=== PATIENT | female | born 1955 | race Caucasian/White ===

== ENCOUNTER 2017-04-11 17:32 | Emergency (ER) | payer OTHER ==
[~2017-04-11] VITALS: Ht 170.2 cm; Wt 70.0 kg
[~2017-04-11 17:32] MED LIST: LORT5TAB PO; OMEP20CA5 PO; [UNRECOGNIZED DRUG - CODE]
[2017-04-11 17:37] VITALS: BP 112/66; PULSE 103; RESP 22; TEMP 101.3; O2SAT 97
[2017-04-11 17:51] VITALS: BP 103/69; PULSE 105; RESP 18; TEMP 101.3; O2SAT 99
[2017-04-11] MEDS ORDERED: KETOROLAC TROMETHAMINE 30 MG/ML (IVP) VIAL IV PUSH ONE (18:00)
[2017-04-11] MEDS ORDERED: SODIUM CHLOR 0.9% 1000 ML INJ 1,000 ML IV ONE ×2 (18:00)
--- NOTE | 2017-04-11 18:03 | PD ---
HPI Chief Complaint: Fever Time Seen by Provider: 17:47 Travel History International Travel<30 days: No Contact w/Intl Traveler<30days: No Traveled to known affect area: No History of Present Illness HPI 62-year-old female presents to the emergency department for evaluation of fever that started last night. Patient has a port to the right upper chest. She is herself calcium infusions 3 times weekly for hypoparathyroidism. The patient is concerned that her port may be infected. She has had it for 2 years without issue. She denies any pain or erythema. Patient states that she has fever and bodyaches, no other complaints. Patient denies any cough or congestion. She reports mild headache. No abdominal pain. No nausea, vomiting, diarrhea. No urinary symptoms. Patient took Tylenol at 2:30 this afternoon. She states she had a similar episode approximately 3 weeks ago and ran a fever while she was doing her infusion. However, it was gone the next day and she has been fine until last night. Patient states that her symptoms started while getting a calcium infusion. PFSH Past Medical History Hx Anticoagulant Therapy: Yes (HEPARIN IN PORT ) Anemia: Yes GERD: Yes Implanted Vascular Access Dvce: Yes Medical other: Yes (hyperparathyroidism) Past Surgical History Abdominal Surgery: Yes (DUDENAAL SWITCH-2005) Appendectomy: Yes Cholecystectomy: Yes Hysterectomy: Yes Tonsillectomy: Yes Social History Alcohol Use: Yes (OCCASIONAL) Tobacco Use: No Substance Use: No Allergies-Medications (Allergen,Severity, Reaction): Coded Allergies: doxycycline (Unverified Adverse Reaction, Severe, Vertigo, 03/09/17) meperidine (Unverified Adverse Reaction, Severe, Psychosis, 03/09/17) codeine (Unverified Adverse Reaction, Mild, Irritability/Anxiety, 03/09/17) Reported Meds & Prescriptions Reported Meds & Active Scripts Active Reported [Calcium Gluconate] 2 Gm IV-CENTRAL MOWEFR Calcium Gluconate 2gm/500ml NSS infusion therapy three times a week on Wednesday,Wednesday and Wednesday [Primal Defense Ultra] 2 Tab PO BID Vitamin A 25,000 Unit Capsule 50,000 Units PO DAILY Vitamin D3 (Cholecalciferol) 50,000 Unit Cap 100,000 Units PO BID Vitamin K (Phytonadione) 100 Mcg Tab 1,000 Mcg PO BID Vitamin K2 (Menaquinone-7) 40 Mcg Tab 150 Mcg PO BID Cymbalta DR (Duloxetine HCl) 60 Mg Capdr 60 Mg PO HS Flagyl (Metronidazole) 250 Mg Tab 250 Mg PO BID Zantac (Ranitidine HCl) 150 Mg Tab 150 Mg PO HS Omeprazole 40 Mg Cap 40 Mg PO BID Tylenol (Acetaminophen) 325 Mg Tab 650 Mg PO Q6H PRN Colace (Docusate Sodium) 100 Mg Capsule 100 Mg PO DAILY PRN Review of Systems Except as stated in HPI: all other systems reviewed are Neg Physical Exam Narrative GENERAL: Well-nourished, well-developed female patient, temp of 101.3. SKIN: Focused skin assessment warm/dry. HEAD: Normocephalic. Atraumatic. ENT: Mucosa pink and moist. No erythema or exudates. No uvular edema. No uvular , palatal, or tonsillar deviation. Airway patent. Nasal turbinates appear normal without nasal blood, purulent drainage or septal hematoma. Bilateral tympanic membranes are clear without erythema or perforation. EYES: No scleral icterus. No injection or drainage. NECK: Supple, trachea midline. No JVD or lymphadenopathy. CARDIOVASCULAR: Regular rate and rhythm without murmurs, gallops, or rubs. RESPIRATORY: Breath sounds equal bilaterally. No accessory muscle use. Lungs sounds are clear to auscultation. GASTROINTESTINAL: Abdomen soft, non-tender, nondistended. MUSCULOSKELETAL: No cyanosis, or edema. BACK: Nontender without obvious deformity. No CVA tenderness. Data Data Last Documented VS Vital Signs Date Time Temp Pulse Resp B/P (MAP) Pulse Ox O2 Delivery O2 Flow Rate FiO2 04/11/17 19:28 99.0 74 16 102/66 (78) 96 Room Air Orders Orders Complete Blood Count With Diff (04/11/17 17:54) Comprehensive Metabolic Panel (04/11/17 17:54) Lactic Acid Sepsis Protocol (04/11/17 17:54) Urinalysis - C+S If Indicated (04/11/17 17:54) Influenzae A/B Antigen (04/11/17 17:54) Blood Culture (04/11/17 17:54) Chest, Single Ap (04/11/17 17:54) Blood Glucose (04/11/17 17:54) Ecg Monitoring (04/11/17 17:54) Iv Access Insert/Monitor (04/11/17 17:54) Oximetry (04/11/17 17:54) Oxygen Administration (04/11/17 17:54) Sodium Chlor 0.9% 1000 Ml Inj (Ns 1000 M (04/11/17 18:00) Sodium Chlor 0.9% 1000 Ml Inj (Ns 1000 M (04/11/17 18:00) Ketorolac Inj (Toradol Inj) (04/11/17 18:00) Labs Laboratory Tests Test 04/11/17 18:05 White Blood Count 7.2 TH/MM3 Red Blood Count 4.70 MIL/MM3 Hemoglobin 12.3 GM/DL Hematocrit 37.4 % Mean Corpuscular Volume 79.6 FL Mean Corpuscular Hemoglobin 26.2 PG Mean Corpuscular Hemoglobin Concent 32.9 % Red Cell Distribution Width 14.5 % Platelet Count 241 TH/MM3 Mean Platelet Volume 7.5 FL Neutrophils (%) (Auto) 77.9 % Lymphocytes (%) (Auto) 11.1 % Monocytes (%) (Auto) 10.0 % Eosinophils (%) (Auto) 0.5 % Basophils (%) (Auto) 0.5 % Neutrophils # (Auto) 5.6 TH/MM3 Lymphocytes # (Auto) 0.8 TH/MM3 Monocytes # (Auto) 0.7 TH/MM3 Eosinophils # (Auto) 0.0 TH/MM3 Basophils # (Auto) 0.0 TH/MM3 CBC Comment DIFF FINAL Differential Comment Urine Color YELLOW Urine Turbidity CLEAR Urine pH 6.0 Urine Specific [place] 1.016 Urine Protein TRACE mg/dL Urine Glucose (UA) NEG mg/dL Urine Ketones NEG mg/dL Urine Occult Blood NEG Urine Nitrite NEG Urine Bilirubin NEG Urine Urobilinogen LESS THAN 2.0 MG/DL Urine Leukocyte Esterase NEG Urine RBC LESS THAN 1 /hpf Urine WBC LESS THAN 1 /hpf Urine Squamous Epithelial Cells <1 /hpf Urine Mucus FEW /lpf Microscopic Urinalysis Comment CATH-CULT NOT IND Blood Urea Nitrogen 9 MG/DL Creatinine 0.68 MG/DL Random Glucose 103 MG/DL Total Protein 6.8 GM/DL Albumin 3.5 GM/DL Calcium Level 8.7 MG/DL Alkaline Phosphatase 109 U/L Aspartate Amino Transf (AST/SGOT) 25 U/L Alanine Aminotransferase (ALT/SGPT) 39 U/L Total Bilirubin 0.4 MG/DL Sodium Level 136 MEQ/L Potassium Level 3.9 MEQ/L Chloride Level 104 MEQ/L Carbon Dioxide Level 24.3 MEQ/L Anion Gap 8 MEQ/L Estimat Glomerular Filtration Rate 88 ML/MIN Lactic Acid Level 0.8 mmol/L MDM Medical Decision Making Medical Screen Exam Complete: Yes Emergency Medical Condition: Yes Medical Record Reviewed: Yes Interpretation(s) Last Impressions Chest X-Ray 04/11/17 8345 Signed Impressions: Service Date/Time: Tuesday, April 11, 2017 18:45 - CONCLUSION: No evidence of pneumonia or other acute cardiopulmonary disease. Charles Garsia MD Differential Diagnosis Influenza versus viral syndrome versus pneumonia versus UTI versus port infection Narrative Course 62-year-old female presents to the emergency department for evaluation of fever , body aches that started last night. She does have a port for calcium infusions and is concerned of infection. CBC, CMP, lactic acid, blood cultures 2, and influenza, ua are ordered and pending. Chest x-ray is ordered and pending. Patient is given normal saline 1 L IV bolus 2, Toradol 30 mg IV for fever. CBC shows normal WBC of 7.2, neutrophilia of 77.9. CMP is unremarkable. Lactic acid is 0.8. UA is negative for acute infection. Chest x-ray shows no evidence of pneumonia or other acute cardiopulmonary disease. Influenza is negative. Lab work and imaging results are reassuring. I discussed results with the patient. Blood cultures are pending. I instructed the patient states the symptoms are most likely due to viral illness. She is to take plenty of fluids , Tylenol every 4 hours as needed. She is instructed to follow with her primary care physician for reevaluation. She is return here for any acute worsening of symptoms. Patient verbalizes agreement and understanding. The patient was discharged in stable condition with instructions, including return instructions and follow up instructions. Diagnosis Primary Impression: Fever Qualified Codes: R50.9 - Fever, unspecified Additional Impression: Viral illness Referrals: Primary Care Physician 2 days Patient Instructions: Fever in Adults (ED), General Instructions, Viral Syndrome (ED) Additional Instructions: Drink plenty of fluids. Tylenol every 4 hours as needed for fever. Follow-up with your primary care physician. Return to the emergency department for any acute worsening of symptoms. Med/Other Pt SpecificInfo: No Change to Meds Disposition: DISCHARGE HOME Condition: Stable Alison Sierra Apr 11, 2017 18:03
[2017-04-11] MEDS ORDERED: ZANT150T2 PO (18:27)
[2017-04-11] MEDS ORDERED: TYLE325T PO (18:27)
[2017-04-11] MEDS ORDERED: CHOL1CAP34 PO (18:27)
[2017-04-11] MEDS ORDERED: MENA1TAB PO (18:27)
[2017-04-11] MEDS ORDERED: VITA100T50 PO (18:27)
[2017-04-11] MEDS ORDERED: COLA100C PO (18:27)
[2017-04-11] MEDS ORDERED: [UNRECOGNIZED DRUG - OTHER] PO (18:27)
[2017-04-11] MEDS ORDERED: [UNRECOGNIZED DRUG - CODE] PO (18:27)
[2017-04-11] MEDS ORDERED: OMEP40CA2 PO (18:27)
[2017-04-11] MEDS ORDERED: METR250 PO (18:27)
[2017-04-11] MEDS ORDERED: CALC-78 IV-CENTRAL (18:27)
[2017-04-11] MEDS ORDERED: CYMB60CA PO (18:27)
[2017-04-11 18:38] LABS: AUTOMATED NEUTROPHIL # 5.6 TH/MM3 (1.8-7.7); BASOPHIL % 0.5 % (0.0-2.0); EOSINOPHIL % 0.5 % (0.0-4.0); HEMATOCRIT 37.4 % (35.0-46.0); HEMO FLAGS DIFF FINAL; LYMPH % 11.1 % (9.0-44.0); LYMPHOCYTE # 0.8 TH/MM3 (1.0-4.8); MEAN CELL VOLUME 79.6 FL (80.0-100.0); MEAN CORPUSCULAR HEMOGLOBIN 26.2 PG (27.0-34.0); MEAN CORPUSCULAR HGB CONC 32.9 % (32.0-36.0); NEUT % 77.9 % (16.0-70.0); PLATELET COUNT 241 TH/MM3 (150-450); RED CELL DISTRIBUTION WIDTH 14.5 % (11.6-17.2); WHITE BLOOD COUNT 7.2 TH/MM3 (4.0-11.0)
[2017-04-11 18:51] LABS: ANION GAP 8 MEQ/L (5-15); AST (GOT) 25 U/L (15-37); BICARBONATE 24.3 MEQ/L (21.0-32.0); BLOOD UREA NITROGEN 9 MG/DL (7-18); CHLORIDE 104 MEQ/L (98-107); GLOMERULAR FILTRATION RATE 88 ML/MIN (>89); POTASSIUM 3.9 MEQ/L (3.5-5.1); SODIUM (NA) 136 MEQ/L (136-145)
[2017-04-11 18:52] LABS: ALT (GPT) 39 U/L (10-53)
[2017-04-11 18:53] LABS: BLOOD, URINE NEG (NEG); GLUCOSE,URINE NEG (NEG); KETONE, URINE NEG (NEG); MUCUS URINE FEW /lpf (OCC); NITRITE,URINE NEG (NEG); SQUAMOUS EPITHELIAL CELL URINE <1 /hpf (0-5); URINE COLOR YELLOW (YELLW/STRAW)
[2017-04-11 18:54] LABS: ALKALINE PHOSPHATASE 109 U/L (45-117); COMMENT (UR) CATH-CULT NOT IND; CULTURE IF INDICATED CATH CULTURE NOT IND; TOTAL BILIRUBIN ADULT 0.4 MG/DL (0.2-1.0)
--- NOTE | 2017-04-11 19:07 | RADRPT ---
EXAM DATE/TIME: 04/11/2017 18:45 [facility] COMPARISON: No previous studies available for comparison. INDICATIONS : Fever MEDICAL HISTORY : None. SURGICAL HISTORY : Infusaport ENCOUNTER: Initial ACUITY: 1 day PAIN SCORE: 0/10 LOCATION: chest FINDINGS: A single view of the chest demonstrates the lungs to be symmetrically aerated without evidence of mas s, infiltrate or effusion. The cardiomediastinal contours are unremarkable. Osseous structures are intact. There is a right internal jugular [id number] catheter with tip at the atriocaval junction. CONCLUSION: No evidence of pneumonia or other acute cardiopulmonary disease. Charles Garsia MD on April 11, 2017 at 19:05 Board Certified Radiologist. This report was verified electronically.
[2017-04-11 19:28] VITALS: BP 102/66; PULSE 74; RESP 16; TEMP 99; O2SAT 96
== END 2017-04-11 20:27 | disposition home or self-care (01) ==
LOC: NEPC 17:32
DX: R50.9 Fever, unspecified (principal); B34.9 Viral infection, unspecified
CPT/HCPCS: 71010; 80053; 81001; 83605; 85025; 87040; 87077; 87205; 87804; 96361; 96374; 99284; J1642; J1885; J7030

== ENCOUNTER 2017-04-18 14:01 | Emergency (ER) | payer OTHER ==
[~2017-04-18] VITALS: Ht 172.7 cm; Wt 68.0 kg
[~2017-04-18 14:01] MED LIST changes: +CALC-78 IV-CENTRAL; +CHOL1CAP34 PO; +COLA100C PO; +CYMB60CA PO; -LORT5TAB PO; +MENA1TAB PO; +METR250 PO; -OMEP20CA5 PO; +OMEP40CA2 PO; +TYLE325T PO; +VITA100T50 PO; +ZANT150T2 PO; -[UNRECOGNIZED DRUG - CODE]; +[UNRECOGNIZED DRUG - CODE] PO; +[UNRECOGNIZED DRUG - OTHER] PO
[2017-04-18 14:03] VITALS: BP 119/70; PULSE 80; RESP 20; TEMP 98.4; O2SAT 98
--- NOTE | 2017-04-18 15:12 | PD ---
HPI Chief Complaint: Abnormal Results Time Seen by Provider: 14:57 Travel History International Travel<30 days: No Contact w/Intl Traveler<30days: No Traveled to known affect area: No History of Present Illness HPI Patient is a 62-year-old female presenting to the emergency department for reevaluation after a positive blood culture resulted. She was seen and evaluated 7 days ago in the emergency department when she presented at that time she had been diagnosed with a viral illness. Patient states her fevers lasted for approximately 56 hours, she's been taking acetaminophen around-the- clock. She reports that her fevers continue to breakthrough at night. She reports that this is been ongoing for 1 month, she reports increased fatigue, body aches and fevers that will last a few days and then resolved. Patient was in [place] in late December, she had a tick on her but did not know if it is bitten her or not. Patient is normally very active but for this last month she has been wanting to sleep and lay in bed. She denies any nausea, vomiting, abdominal pain, chest pain or shortness of breath. She denies any cough, diarrhea, headache. 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 Patient receives calcium infusions 3 times a week, she has a right chest port which she accesses herself. 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) Musculoskeletal: Yes (hypoparathyroidism) Past Surgical History Abdominal Surgery: Yes (duodenal SWITCH-2005) Appendectomy: Yes Cholecystectomy: Yes Hysterectomy: Yes Tonsillectomy: Yes Social History Alcohol Use: Yes (OCCASIONAL) Tobacco Use: No Substance Use: No Allergies-Medications (Allergen,Severity, Reaction): Coded Allergies: doxycycline (Unverified Adverse Reaction, Severe, Vertigo, 03/09/17) meperidine (Unverified Adverse Reaction, Severe, Psychosis, 03/09/17) codeine (Unverified Adverse Reaction, Mild, Irritability/Anxiety, 03/09/17) Reported Meds & Prescriptions Reported Meds & Active Scripts Active Reported [Calcium Gluconate] 2 Gm IV-CENTRAL MOWEFR Calcium Gluconate 2gm/500ml NSS infusion therapy three times a week on Wednesday,Wednesday and Wednesday [Primal Defense Ultra] 2 Tab PO BID Vitamin A 25,000 Unit Capsule 50,000 Units PO DAILY Vitamin D3 (Cholecalciferol) 50,000 Unit Cap 100,000 Units PO BID Vitamin K (Phytonadione) 100 Mcg Tab 1,000 Mcg PO BID Vitamin K2 (Menaquinone-7) 40 Mcg Tab 150 Mcg PO BID Cymbalta DR (Duloxetine HCl) 60 Mg Capdr 60 Mg PO HS Flagyl (Metronidazole) 250 Mg Tab 250 Mg PO BID Zantac (Ranitidine HCl) 150 Mg Tab 150 Mg PO HS Omeprazole 40 Mg Cap 40 Mg PO BID Tylenol (Acetaminophen) 325 Mg Tab 650 Mg PO Q6H PRN Colace (Docusate Sodium) 100 Mg Capsule 100 Mg PO DAILY PRN Review of Systems Except as stated in HPI: all other systems reviewed are Neg General / Constitutional: Positive: Fever, Chills, Other (fatigue) Eyes: No: Blurred Vision HENT: No: Headaches Cardiovascular: No: Chest Pain or Discomfort Respiratory: No: Shortness of Breath Gastrointestinal: No: Nausea, Vomiting, Abdominal Pain Musculoskeletal: Positive: Myalgias Physical Exam Narrative GENERAL: Well-developed, well-nourished, well-appearing female. Resting comfortably in no acute distress. SKIN: Warm and dry. HEAD: Atraumatic. Normocephalic. EYES: Pupils equal and round. No scleral icterus. No injection or drainage. ENT: No nasal bleeding or discharge. Mucous membranes pink and moist. NECK: Trachea midline. No JVD. CARDIOVASCULAR: Regular rate and rhythm. RESPIRATORY: No accessory muscle use. Clear to auscultation. Breath sounds equal bilaterally. GASTROINTESTINAL: Abdomen soft, non-tender, nondistended. Hepatic and splenic margins not palpable. MUSCULOSKELETAL: Extremities without clubbing, cyanosis, or edema. No obvious deformities. NEUROLOGICAL: Awake and alert. No obvious cranial nerve deficits. Motor grossly within normal limits. Five out of 5 muscle strength in the arms and legs. Normal speech. PSYCHIATRIC: Appropriate mood and affect; insight and judgment normal. Data Data Last Documented VS Vital Signs Date Time Temp Pulse Resp B/P (MAP) Pulse Ox O2 Delivery O2 Flow Rate FiO2 04/18/17 14:03 98.4 80 20 119/70 (86) 98 Room Air Orders Orders Complete Blood Count With Diff (04/18/17 14:42) Basic Metabolic Panel (Bmp) (04/18/17 14:42) Blood Culture (04/18/17 14:42) Lyme Disease Pcr (04/18/17 14:54) B.Burgdorferi Igg&Igm Ab Lymes (04/18/17 14:54) Labs Laboratory Tests Test 04/18/17 15:10 White Blood Count 6.6 TH/MM3 Red Blood Count 4.57 MIL/MM3 Hemoglobin 11.6 GM/DL Hematocrit 36.2 % Mean Corpuscular Volume 79.4 FL Mean Corpuscular Hemoglobin 25.4 PG Mean Corpuscular Hemoglobin Concent 32.0 % Red Cell Distribution Width 14.6 % Platelet Count 290 TH/MM3 Mean Platelet Volume 7.4 FL Neutrophils (%) (Auto) 68.6 % Lymphocytes (%) (Auto) 19.4 % Monocytes (%) (Auto) 8.9 % Eosinophils (%) (Auto) 2.1 % Basophils (%) (Auto) 1.0 % Neutrophils # (Auto) 4.6 TH/MM3 Lymphocytes # (Auto) 1.3 TH/MM3 Monocytes # (Auto) 0.6 TH/MM3 Eosinophils # (Auto) 0.1 TH/MM3 Basophils # (Auto) 0.1 TH/MM3 CBC Comment DIFF FINAL Differential Comment Blood Urea Nitrogen 13 MG/DL Creatinine 0.78 MG/DL Random Glucose 87 MG/DL Calcium Level 9.2 MG/DL Sodium Level 138 MEQ/L Potassium Level 4.1 MEQ/L Chloride Level 104 MEQ/L Carbon Dioxide Level 26.4 MEQ/L Anion Gap 8 MEQ/L Estimat Glomerular Filtration Rate 75 ML/MIN MDM Medical Decision Making Medical Screen Exam Complete: Yes Emergency Medical Condition: Yes Medical Record Reviewed: Yes Interpretation(s) Laboratory Tests Test 04/18/17 15:10 White Blood Count 6.6 TH/MM3 Red Blood Count 4.57 MIL/MM3 Hemoglobin 11.6 GM/DL Hematocrit 36.2 % Mean Corpuscular Volume 79.4 FL Mean Corpuscular Hemoglobin 25.4 PG Mean Corpuscular Hemoglobin Concent 32.0 % Red Cell Distribution Width 14.6 % Platelet Count 290 TH/MM3 Mean Platelet Volume 7.4 FL Neutrophils (%) (Auto) 68.6 % Lymphocytes (%) (Auto) 19.4 % Monocytes (%) (Auto) 8.9 % Eosinophils (%) (Auto) 2.1 % Basophils (%) (Auto) 1.0 % Neutrophils # (Auto) 4.6 TH/MM3 Lymphocytes # (Auto) 1.3 TH/MM3 Monocytes # (Auto) 0.6 TH/MM3 Eosinophils # (Auto) 0.1 TH/MM3 Basophils # (Auto) 0.1 TH/MM3 CBC Comment DIFF FINAL Differential Comment Blood Urea Nitrogen 13 MG/DL Creatinine 0.78 MG/DL Random Glucose 87 MG/DL Calcium Level 9.2 MG/DL Sodium Level 138 MEQ/L Potassium Level 4.1 MEQ/L Chloride Level 104 MEQ/L Carbon Dioxide Level 26.4 MEQ/L Anion Gap 8 MEQ/L Estimat Glomerular Filtration Rate 75 ML/MIN Vital Signs Date Time Temp Pulse Resp B/P (MAP) Pulse Ox O2 Delivery O2 Flow Rate FiO2 04/18/17 14:03 98.4 80 20 119/70 (86) 98 Room Air Differential Diagnosis Viral syndrome versus Alonso-Agee versus Lyme disease versus bacteremia Narrative Course Pt returned to ED for reassessment after having a positive blood culture. One aerobic culture grew polymorphic gram positive rods. Pt reported a 1 month history of recurring fevers, general malaise, body aches. Interestingly she had been in [place] and had found a tick on her, she is unsure if she had been bitten or if there was another unfound tick. For this reason in addition to the CBC, chemistry and repeated blood cultures we will obtain labs to assess for Lyme disease. Pt is afebrile now. New labs reviewed, no acute findings identified. Blood cultures are pending as is PCR. Pt advised she will need to follow up with her PCP to have these results requested and reviewed. Pt advised to return to the ED for any new or worsening symptoms. She was advised she will be notified if repeated cultures are again positive. She verbalized understanding, pt is stable for discharge. Diagnosis Primary Impression: Positive blood culture Referrals: Primary Care Physician 1 week Patient Instructions: General Instructions Additional Instructions: Follow-up with your primary doctor in 3-7 days to review lab results Return to emergency department for any new or worsening symptoms If repeat blood cultures are positive you will be notified once again. Med/Other Pt SpecificInfo: No Change to Meds Disposition: 01 DISCHARGE HOME Condition: Stable Cinthia Jimenez Apr 18, 2017 15:12
[2017-04-18 15:55] LABS: AUTOMATED NEUTROPHIL # 4.6 TH/MM3 (1.8-7.7); BASOPHIL # 0.1 TH/MM3 (0-0.2); EOSINOPHIL # 0.1 TH/MM3 (0-0.4); EOSINOPHIL % 2.1 % (0.0-4.0); HEMATOCRIT 36.2 % (35.0-46.0); HEMO FLAGS DIFF FINAL; LYMPH % 19.4 % (9.0-44.0); LYMPHOCYTE # 1.3 TH/MM3 (1.0-4.8); MEAN CELL VOLUME 79.4 FL (80.0-100.0); MEAN CORPUSCULAR HEMOGLOBIN 25.4 PG (27.0-34.0); MONO % 8.9 % (0.0-8.0); NEUT % 68.6 % (16.0-70.0); PLATELET COUNT 290 TH/MM3 (150-450); RED BLOOD COUNT 4.57 MIL/MM3 (4.00-5.30); RED CELL DISTRIBUTION WIDTH 14.6 % (11.6-17.2); WHITE BLOOD COUNT 6.6 TH/MM3 (4.0-11.0)
[2017-04-18 16:08] LABS: BICARBONATE 26.4 MEQ/L (21.0-32.0); POTASSIUM 4.1 MEQ/L (3.5-5.1)
[2017-04-21 23:54] LABS: LYME DISEASE 18KD IGG BAND NON-REACTIVE (NON REACTIV); LYME DISEASE 23 IGG BAND NON-REACTIVE (NON REACTIV); LYME DISEASE 23KD IGM BAND NON-REACTIVE (NONREACTIVE); LYME DISEASE 28KD IGG BAND NON-REACTIVE (NON REACTIV); LYME DISEASE 30KD IGG BAND NON-REACTIVE (NON REACTIV); LYME DISEASE 39 KD IGG BAND NON-REACTIVE (NONREACTIVE); LYME DISEASE 39KD IGM BAND NON-REACTIVE (NONREACTIVE); LYME DISEASE 41KD IGG BAND REACTIVE (NONREACTIVE); LYME DISEASE 41KD IGM BAND REACTIVE (NONREACTIVE); LYME DISEASE 45KD IGG BAND NON-REACTIVE (NONREACTIVE); LYME DISEASE 58KD IGG BAND NON-REACTIVE (NONREACTIVE); LYME DISEASE 66KD IGG BAND NON-REACTIVE (NONREACTIVE); LYME DISEASE 93KD IGG BAND NON-REACTIVE (NONREACTIVE); LYME DISEASE IGM WB NEGATIVE (NONREACTIVE)
== END 2017-04-18 17:17 | disposition home or self-care (01) ==
LOC: NEPC 14:01
DX: R78.81 Bacteremia (principal)
CPT/HCPCS: 80048; 85025; 86617; 87040; 87077; 87205; 87801; 99283

== ENCOUNTER 2018-02-25 13:52 | Inpatient (IN) ==
[2018-02-25] MEDS ORDERED: Morphine Inj 4 MG/ML Vial IM ONE (16:40)
--- NOTE | 2018-02-25 17:00 | ED ---
HPI General Chief Complaint: Extremity Injury, Lower Stated Complaint: fall Time Seen by Provider: 02/25/18 16:18 Source: patient Mode of arrival: ambulatory Limitations: no limitations History of Present Illness HPI Narrative: 63-year-old female with a history of Keenan-Danlos syndrome, osteoporosis, GERD, esophageal erosion presents to the ED with left hip pain that has been persistent for 1 week. She says she had a mechanical fall last and landed directly on her left hip. Says she went to urgent care the same day and had an x-ray which did not demonstrate a fracture. Patient says she has had severe pain since the incident and decided go to her primary care physician this past Wednesday. Dr. Dyer, her PCP ordered an MRI of the hip and she had this performed yesterday. Says that she did not know the results but decided to come in today because of severe pain in her left hip. Patient says that she has been taking Tylenol and a couple of doses of Celebrex although she was directed not to do so. Says that she has a history of GERD and gastric erosion was advised not to take NSAIDs because of this medical issue. Says the pain is located in her left hip without radiation. It is moderate, worse with walking. Denies numbness or tingling. Related Data Home Medications Medication Instructions Recorded Confirmed No Known Home Medications 02/25/18 02/25/18 Allergies Allergy/AdvReac Type Severity Reaction Status Date / Time doxycycline AdvReac Severe Vertigo Verified 02/25/18 16:03 meperidine AdvReac Severe Psychosis Verified 02/25/18 16:04 codeine AdvReac Mild Irritabilit Verified 02/25/18 16:04 y/Anxiety Review of Systems Except as stated in HPI: all other systems reviewed are negative Constitutional Denies fever(s) ENT Denies nasal congestion Cardiovascular Denies chest pain Respiratory Denies cough Gastrointestinal Reports nausea Musculoskeletal Denies neck pain Integumentary/Breasts Denies rash Neurologic Denies numbness [facility] Social History Social History Second Hand Smoke Exposure: No Smoking Status: Never smoker How Often Do You Have a Drink Containing Alcohol: Never Recent Travel in [facility] within the Last 8 Weeks: No Recent Out of Country Travel within the Last 8 Weeks: No Immunization History Tetanus Immunization: Unsure Exam Const General: healthy appearing and no acute distress [facility] Head: normocephalic and atraumatic Face and sinus: normal facial exam Eyes General: appearance normal, both eyes and all related structures Pupils: PERRL Chest Chest: normal inspection of the chest Resp Effort & Inspection: normal respiratory effort Auscultation: no rhonchi and no wheezes Cardio Rate: regular rate Rhythm: regular rhythm GI Inspection: non-distended Palpation: soft and nontender Skin General: no rashes or lesions noted Neuro General: alert, awake, oriented x3 and no focal motor deficits Extrem Other: Tenderness to left anterior and lateral hip, leg lengths equal Psych Affect: normal affect Course Initial Documented Vital Signs Temperature 98.3 F 02/25/18 14:09 Pulse Rate 85 02/25/18 14:09 Respiratory Rate 20 02/25/18 14:09 Blood Pressure 110/73 02/25/18 14:09 Pulse Oximetry 96 02/25/18 14:09 Last Documented Vital Signs Temperature 98.3 F 02/25/18 14:09 Pulse Rate 67 02/25/18 17:48 Respiratory Rate 18 02/25/18 18:50 Blood Pressure 142/80 H 02/25/18 17:48 Pulse Oximetry 96 02/25/18 14:09 Medical Decision Making ESTER Attestation ESTER supervised visit: Yes Attestation: I was present with the advanced practitioner during the management of this patient. I discussed the case with the advanced practitioner and agree with the findings and plan as documented in their note except as noted below. 63yF presenting with left hip pain. The patient had a mechanical fall at home 1 week ago, had a negative X-ray but was subsequently sent for outpatient MRI as her pain persisted. The MRI showed a subacute left hip fracture. The patient has a history of osteoporosis and Keenan-Danlos syndrome. She does not use any anticoagulants or antiplatelets. Well-appearing, no acute distress NCAT, PERRL Port present in right upper chest RRR Lungs CTAB Abdomen soft and non-tender GCS 15, no focal neuro deficits Tenderness and decreased ROM to left hip, neurovascularly intact to LLE A/P: 63yF with left hip fracture s/p fall at home Pain control Pre-op labs Ortho consult Admission MDM Narrative Medical decision making narrative: 63-year-old female presents emergency department for evaluation of left hip pain after mechanical fall that occurred approximately 1 week ago. Says she had an x-ray to evaluate for this injury but did not demonstrate an acute process. She saw her primary care physician Wednesday and performed an MRI yesterday and decided to come in today for further evaluation. Review the MRI from [facility] and it does not fact demonstrate a left intertrochanteric fracture. Labs ordered for evaluation. Morphine for pain. Pt will be admitted. Differential Diagnosis Differential Diagnosis: left hip fracture, contusion, dislocation Lab Data Result diagrams: 02/25/18 17:41 02/25/18 17:41 Lab Results 02/25/18 02/25/18 02/25/18 Range/Units 17:41 17:41 17:41 WBC 5.6 (4.0-11.0) th/mm3 RBC 4.28 (4.00-5.30) mil/mm3 Hgb 13.0 (11.6-15.3) gm/dL Hct 38.3 (35.0-46.0) % MCV 89.4 (80.0-100.0) fL MCH 30.3 (27.0-34.0) pg MCHC 33.9 (32.0-36.0) % RDW 14.6 (11.6-17.2) % Plt Count 268 (150-450) th/mm3 MPV 7.9 (7.0-11.0) fL Neut % (Auto) 61.0 (16.0-70.0) % Lymph % (Auto) 26.9 (9.0-44.0) % [place] % (Auto) 7.2 (0.0-8.0) % Eos % (Auto) 4.2 H (0.0-4.0) % Baso % (Auto) 0.7 (0.0-2.0) % Neut # (Auto) 3.4 (1.8-7.7) th/mm3 Lymph # (Auto) 1.5 (1.0-4.8) th/mm3 [place] # (Auto) 0.4 (0.0-0.9) th/mm3 Eos # (Auto) 0.2 (0.0-0.4) th/mm3 Baso # (Auto) 0.0 (0.0-0.2) th/mm3 WBC Differential . Differential Comment Auto diff final PT 9.4 L (9.8-11.6) sec INR 0.9 Ratio APTT 47.2 H (24.3-30.1) sec Sodium 143 (136-145) meq/L Potassium 4.1 (3.5-5.1) meq/L Chloride 110 H (98-107) meq/L Carbon Dioxide 24.6 (21.0-32.0) meq/L Anion Gap 8 (5-15) meq/L BUN 11 (7-18) mg/dL Creatinine 0.73 (0.50-1.00) mg/dL Estimated GFR 81 L (>89) mL/min Random Glucose 86 (74-106) mg/dL Calcium 8.6 (8.5-10.1) mg/dL Total Bilirubin 0.3 (0.2-1.0) mg/dL AST 34 (15-37) U/L ALT 46 (10-53) U/L Alkaline Phosphatase 115 (45-117) U/L Total Protein 6.4 (6.4-8.2) g/dL Albumin 3.4 (3.4-5.0) g/dL Discharge Plan Discharge Disposition Patient Disposition: 30 Still Patient Discharge Condition Condition: Stable Physicians Team ED Provider: Charleen Bains ED Midlevel Provider: Shawna Mujica Primary Care Provider: Charles Dyer Attending Provider: Stefanie Pérez Status ED Status: Admitted Patient Addendum entered and electronically signed by KASSIDY Cain 02/25/18 19: 01: I spoke with Dr. Pérez who agreed to the admission. Will order CT if requested by Ortho.
[2018-02-25] MEDS ORDERED: Morphine Inj 4 MG/ML Vial IV.PUSH ONE (17:26)
[2018-02-25] MEDS ORDERED: HYDROmorphone PF Inj 2 MG/ML Vial IV.PUSH ONE (17:41)
[2018-02-25 18:22] LABS: Baso % (Auto) 0.7 % (0.0-2.0); Eos # (Auto) 0.2 th/mm3 (0.0-0.4); Eos % (Auto) 4.2 % (0.0-4.0); Hematocrit 38.3 % (35.0-46.0); Lymph # (Auto) 1.5 th/mm3 (1.0-4.8); Lymph % (Auto) 26.9 % (9.0-44.0); Mean Corpuscular HGB Conc 33.9 % (32.0-36.0); Mean Corpuscular Hemoglobin 30.3 pg (27.0-34.0); Mean Corpuscular Volume 89.4 fL (80.0-100.0); Mean Platelet Volume 7.9 fL (7.0-11.0); Mono # (Auto) 0.4 th/mm3 (0.0-0.9); Mono % (Auto) 7.2 % (0.0-8.0); Neut # (Auto) 3.4 th/mm3 (1.8-7.7); Platelet Count 268 th/mm3 (150-450); Red Blood Count 4.28 mil/mm3 (4.00-5.30); Red Cell Distribution Width 14.6 % (11.6-17.2); White Blood Count 5.6 th/mm3 (4.0-11.0)
[2018-02-25 18:26] LABS: Activated Partial Thrombo Time 47.2 sec (24.3-30.1); INR 0.9 Ratio; Prothrombin Time 9.4 sec (9.8-11.6)
[2018-02-25 18:33] LABS: Alanine Aminotransferase 46 U/L (10-53); Albumin 3.4 g/dL (3.4-5.0); Anion Gap 8 meq/L (5-15); Aspartate Aminotransferase 34 U/L (15-37); Blood Urea Nitrogen 11 mg/dL (7-18); Calcium 8.6 mg/dL (8.5-10.1); Carbon Dioxide 24.6 meq/L (21.0-32.0); Chloride 110 meq/L (98-107); Glomerular Filtration Rate 81 mL/min (>89); Glucose,Random 86 mg/dL (74-106); Potassium 4.1 meq/L (3.5-5.1); Sodium 143 meq/L (136-145)
[2018-02-25 18:36] LABS: Alkaline Phosphatase 115 U/L (45-117); Total Protein 6.4 g/dL (6.4-8.2)
[2018-02-25] MEDS ORDERED: Bisacodyl 10 MG Supp RECTAL PRN (19:12)
[2018-02-25] MEDS ORDERED: Temazepam 15 MG Capsule PO PRN (19:12)
[2018-02-25] MEDS ORDERED: Acetaminophen 325 MG Tablet PO PRN (19:12)
--- NOTE | 2018-02-25 19:15 | P.HPIM ---
History of Present Illness Primary Care Physician: Charles Dyer DO History of Present Illness: This is a 63-year-old female with a PMH of Keenan-Danlos, Malabsorption s/p Port Placement and Osteoporosis who presented to the ER w/ complaints of severe left hip pain. Pain is 10/10, constant, worse w/ movement, no alleviating factors. States symptoms started approx 1wk ago when she had a mechanical trip and fall on the sidewalk. No head trauma or LOC reported. Was seen at Urgent Care at that time, had X-rays and was told they were negative for fracture. Has been having ongoing pain and increasing difficulty w/ ambulation since. Seen by PCP few days ago and referred for MRI, states results would be called in to PCP today however pt unable to wait due to pain. Brought copy of discs from [employer] [facility] [employer] w/ report, showing subacute left hip fracture. Ortho consulted. BP 110/73, HR 85, O2 sat 96% on RA, Afebrile. CBC unremarkable. Chemistry unremarkable. INR 0.9. - Diagnosis (1) Hip fracture, left (2) Intractable pain (3) Malabsorption Review of Systems PAST FAMILY HISTORY: Reviewed. No h/o DM or CAD All other systems reviewed negative except as stated in HPI PMFSH - History History Provided By: Patient - Tobacco History Second Hand Smoke Exposure: No Smoking Status: Never smoker - Alcohol History How Often Do You Have a Drink Containing Alcohol: Never - Travel History Recent Travel in the [place] Within the Last 8 Weeks: No Recent Travel Out of the Country Within the Last 8 Weeks: No - Immunization History Tetanus Immunization: Unsure Medications and Allergies Active Medications: Active Medications Acetaminophen (Tylenol) 650 mg PO Q4H PRN PRN Reason: Temp > 100.4 Al Hydroxide/Mg Hydroxide (Milk Of Magnesia Liq) 30 ml PO Q12H PRN PRN Reason: Mild Constipation Bisacodyl (Dulcolax Supp) 10 mg RECTAL DAILY PRN PRN Reason: SEVERE CONSITIPATION Sodium Chloride (Ns Inj) 1,000 mls @ 100 mls/hr IV.CONT .Q10H DANY Lactulose (Lactulose Liq) 30 ml PO DAILY PRN PRN Reason: SEVERE CONSITIPATION Morphine Sulfate (Morphine Inj) 2 mg IV.PUSH Q4H PRN PRN Reason: PAIN 6-10 Ondansetron HCl (Zofran Inj) 4 mg IV.PUSH Q6H PRN PRN Reason: NAUSEA OR VOMITING Senna/Docusate Sodium (Martha-Colace) 1 tab PO BID DANY Sennosides (Senokot) 17.2 mg PO Q12H PRN PRN Reason: Moderate Constipation Temazepam (Restoril) 15 mg PO HS PRN PRN Reason: INSOMNIA Allergies Allergy/AdvReac Type Severity Reaction Status Date / Time doxycycline AdvReac Severe Vertigo Verified 02/25/18 16:03 meperidine AdvReac Severe Psychosis Verified 02/25/18 16:04 codeine AdvReac Mild Irritabilit Verified 02/25/18 16:04 y/Anxiety Home Medications Medication Instructions Recorded Confirmed Type No Known Home Medications 02/25/18 02/25/18 History Exam Vital signs: Vital Signs 02/25/18 14:09 02/25/18 17:11 02/25/18 17:48 Temperature 98.3 F Pulse Rate 85 71 67 Respiratory Rate 20 18 18 Blood Pressure 110/73 124/87 142/80 H Pulse Oximetry 96 02/25/18 18:50 Temperature Pulse Rate Respiratory Rate 18 Blood Pressure Pulse Oximetry Intake & Output 02/25/18 02/25/18 02/26/18 06:59 18:59 06:59 Weight 69.4 kg Narrative: PE: GENERAL: Pleasant middle-aged white female in no acute distress. at bedside. HEENT: PERRLA, EOMI. No scleral icterus or conjunctival pallor. No lid lag or facial droop. CARDIOVASCULAR: Regular rate and rhythm. No obvious murmurs to auscultation. No chest tenderness to palpation. Right chest port in place. RESPIRATORY: No obvious rhonchi or wheezing. Clear to auscultation. Breath sounds equal bilaterally. GASTROINTESTINAL: Abdomen soft, non-tender, nondistended. BS normal. MUSCULOSKELETAL: Extremities without clubbing, cyanosis, or edema. No obvious deformities. Decreased ROM of LLE due to pain. Pulses intact NEUROLOGICAL: Awake, alert and oriented x4. No focal neurologic deficits. Moving both upper and lower extremities spontaneously. Results - Labs CBC & Chem 7: 02/25/18 17:41 02/25/18 17:41 Labs: Short CBC 02/25/18 Range/Units 17:41 WBC 5.6 (4.0-11.0) th/mm3 Hgb 13.0 (11.6-15.3) gm/dL Hct 38.3 (35.0-46.0) % Plt Count 268 (150-450) th/mm3 BMP 02/25/18 17:41 Sodium 143 Potassium 4.1 Chloride 110 H Carbon Dioxide 24.6 BUN 11 Creatinine 0.73 Calcium 8.6 Liver Function 02/25/18 Range/Units 17:41 Total Bilirubin 0.3 (0.2-1.0) mg/dL AST 34 (15-37) U/L ALT 46 (10-53) U/L Alkaline Phosphatase 115 (45-117) U/L Albumin 3.4 (3.4-5.0) g/dL Caprini VTE Risk Assessment Caprini VTE Risk Assessment: Moderate/High Risk (score >= 2) Caprini Risk Assessment Model: Point Value = 1 Point Value = 2 Point Value = 3 Point Value = 5 Age 41-60 Minor surgery BMI > 25 kg/m2 Swollen legs Varicose veins or History of unexplained or recurrent spontaneous Oral contraceptives or hormone replacement Sepsis (< 1 month) Serious lung disease, including pneumonia (< 1 month) Abnormal pulmonary function Acute myocardial infarction Congestive heart failure (< 1 month) History of inflammatory bowel disease Medical patient at bed rest Age 61-74 Arthroscopic surgery Major open surgery (> 45 min) Laparoscopic surgery (> 45 min) Malignancy Confined to bed (> 72 hours) Immobilizing plaster cast Central venous access Age >= 75 History of VTE Family history of VTE Factor V Leiden Prothrombin [id number] Lupus anticoagulant Anticardiolipin antibodies Elevated serum homocysteine Heparin-induced thrombocytopenia Other congenital or acquired thrombophilia Stroke (< 1 month) Elective arthroplasty Hip, pelvis, or leg fracture Acute spinal cord injury (< 1 month) Prophylaxis Regimen: Total Risk Factor Score Risk Level Prophylaxis Regimen 0-1 Low Early ambulation 2 Moderate Order ONE of the following: *Sequential Compression Device (SCD) *Heparin 5000 units SQ BID 3-4 Higher Order ONE of the following medications: *Heparin 5000 units SQ TID *Enoxaparin/Lovenox 40 mg SQ daily (WT < 150 kg, CrCl > 30 mL/min) *Enoxaparin/Lovenox 30 mg SQ daily (WT < 150 kg, CrCl > 10-29 mL/min) *Enoxaparin/Lovenox 30 mg SQ BID (WT < 150 kg, CrCl > 30 mL/min) AND/OR *Sequential Compression Device (SCD) 5 or more Highest Order ONE of the following medications: *Heparin 5000 units SQ TID (Preferred with Epidurals) *Enoxaparin/Lovenox 40 mg SQ daily (WT < 150 kg, CrCl > 30 mL/min) *Enoxaparin/Lovenox 30 mg SQ daily (WT < 150 kg, CrCl > 10-29 mL/min) *Enoxaparin/Lovenox 30 mg SQ BID (WT < 150 kg, CrCl > 30 mL/min) AND *Sequential Compression Device (SCD) Assessment and Plan - Assessment (1) Hip fracture, left Code(s): S72.002A - Fracture of unspecified part of neck of left femur, initial encounter for closed fracture Status: Acute (2) Intractable pain Code(s): R52 - Pain, unspecified Status: Acute (3) Malabsorption Code(s): K90.9 - Intestinal malabsorption, unspecified Status: Acute - Plan A/P: 1. Left Hip Fx: s/p fall approx 1wk ago, no head trauma or LOC, outpatient X- ray negative for fracture, however MRI Hip from [facility] showing subacute left hip fracture. Ortho consulted for further eval/surgical intervention. NPO after midnight, IVF, analgesics/antiemetics as needed. 2. Intractable Pain: s/p Morphine in ER w/ no relief, will continue w/ Dilaudid IV-reports no specific allergy to Codeine, however states unable to take PO due to malabsorption. 3. Malabsorption: Chronic. Right chest port in place. Requesting to be continued on high protein/high calorie diet, will resume postop. 4. DVT Prophylaxis: Anticoagulation post op 5. Social work for d/c planning as needed. 6. Case discussed w/ ER physician at length, labs/records/imaging reviewed by me
[2018-02-25] MEDS ORDERED: Morphine Inj 4 MG/ML Vial IV.PUSH PRN (19:30)
[2018-02-25] MEDS ORDERED: HYDROmorphone PF Inj 2 MG/ML Vial IV.PUSH PRN ×3 (19:47→21:42)
[2018-02-25] MEDS ORDERED: Chlorhexidine Gluconate 2% 1 Pack (2 Cloths) TOPICAL SCH (21:00)
[2018-02-25] MEDS ORDERED: Metoprolol Tartrate 25 MG Tablet PO SCH (21:00)
[2018-02-25] MEDS ORDERED: Sodium Chlor 0.9% Inj 500 ML IV.SIG SCH (21:00)
[2018-02-25] MEDS: HYDROmorphone PF Inj 2 MG/ML Vial IV.PUSH PRN (21:55)
[2018-02-25] MEDS: Sod Chloride 0.9% Inj 1,000 ML IV.CONT SCH (22:38)
--- NOTE | 2018-02-25 22:56 | CT ---
EXAM DATE: 02/25/2018 10:51 PM EDT AGE/SEX: 63 years / Female INDICATIONS: Left hip pain post fall one week ago. Prior MRI shows intertrochanteric fracture. CLINICAL DATA: This is the patient's initial encounter. Patient reports that signs and symptoms have been present for 1 week and indicates a pain score of 10/10. MEDICAL/SURGICAL HISTORY: None. None. RADIATION DOSE: 15.69 CTDI (mGy) COMPARISON: No prior exams available for comparison. TECHNIQUE: Multiple contiguous axial images were acquired using a multirow detector CT scanner witho ut contrast. Multiplanar reconstruction was performed in the sagittal and coronal planes. Using aut omated exposure control and adjustment of the mA and/or kV according to patient size, radiation dose was kept as low as reasonably achievable to obtain optimal diagnostic quality images. DICOM format i mage data is available electronically for review and comparison. FINDINGS: No displaced fractures are identified. Reportedly prior MRI did reveal an intratrochanteric fracture. There is a faint band of sclerosis near the intertrochanteric region possibly from a subacute fractu re. No definite cortical break is seen. There is mild osteoarthritis of the left hip. No dislocation. CONCLUSION: 1. No displaced fracture. Reportedly prior MRI revealed intertrochanteric fracture. Faint band of sc lerosis seen in the lower femoral neck possibly related to subacute fracture or stress reaction. Mild osteoarthritis of the left hip. Electronically signed by: Valentin Dominguez MD 02/25/2018 10:55 PM EDT
[2018-02-25] MEDS: Senna/Docusate Sodium 8.6/50 MG Tablet PO SCH (23:17)
[2018-02-25] MEDS ORDERED: oxyCODONE/Acetaminophen 10/325 Tablet PO ONE (23:30)
[2018-02-25] MEDS ORDERED: Ketorolac Inj 30 MG/ML (IVP) Vial IV.PUSH ONE (23:57)
[2018-02-26] MEDS: HYDROmorphone PF Inj 2 MG/ML Vial IV.PUSH PRN ×5 (01:19→19:01)
[2018-02-26] MEDS: Sod Chloride 0.9% Inj 1,000 ML IV.CONT SCH ×2 (06:06→19:45)
[2018-02-26 07:25] LABS: Baso % (Auto) 0.5 % (0.0-2.0); Eos # (Auto) 0.2 th/mm3 (0.0-0.4); Eos % (Auto) 2.5 % (0.0-4.0); Hematocrit 37.2 % (35.0-46.0); Hemoglobin 12.4 gm/dL (11.6-15.3); Lymph # (Auto) 1.2 th/mm3 (1.0-4.8); Lymph % (Auto) 16.5 % (9.0-44.0); Mean Corpuscular HGB Conc 33.3 % (32.0-36.0); Mean Corpuscular Hemoglobin 29.8 pg (27.0-34.0); Mean Corpuscular Volume 89.3 fL (80.0-100.0); Mean Platelet Volume 7.8 fL (7.0-11.0); Mono # (Auto) 0.3 th/mm3 (0.0-0.9); Mono % (Auto) 4.4 % (0.0-8.0); Neut # (Auto) 5.7 th/mm3 (1.8-7.7); Neut % (Auto) 76.1 % (16.0-70.0); Platelet Count 236 th/mm3 (150-450); Red Blood Count 4.16 mil/mm3 (4.00-5.30); Red Cell Distribution Width 14.8 % (11.6-17.2); White Blood Count 7.4 th/mm3 (4.0-11.0)
[2018-02-26 07:52] LABS: Albumin 3.4 g/dL (3.4-5.0); Anion Gap 9 meq/L (5-15); Aspartate Aminotransferase 117 U/L (15-37); Blood Urea Nitrogen 18 mg/dL (7-18); Calcium 8.2 mg/dL (8.5-10.1); Carbon Dioxide 25.1 meq/L (21.0-32.0); Chloride 107 meq/L (98-107); Glomerular Filtration Rate Greater Than 89 mL/min (>89); Glucose,Random 90 mg/dL (74-106); Potassium 3.8 meq/L (3.5-5.1); Sodium 141 meq/L (136-145)
[2018-02-26 07:58] LABS: Alanine Aminotransferase 96 U/L (10-53); Alkaline Phosphatase 130 U/L (45-117); Total Protein 5.9 g/dL (6.4-8.2)
[2018-02-26 09:59] LABS: Chol/HDL Ratio 2.41 Ratio; HDL Cholesterol 43.4 mg/dL (40.0-60.0)
[2018-02-26] MEDS: Senna/Docusate Sodium 8.6/50 MG Tablet PO SCH (10:11)
--- NOTE | 2018-02-26 10:56 | P.CONOP ---
[facility] Orthopedics Consult Note - [facility] Consult date: 02/26/18 Chief complaint: left intertrochanteric fracture Narrative: This is a 63-year-old female with a PMH of Keenan-Danlos, Malabsorption s/p Port Placement and Osteoporosis who presented to the ER w/ complaints of severe left hip pain. Pain is 10/10, constant, worse w/ movement, no alleviating factors. States symptoms started approx 1wk ago when she had a mechanical trip and fall on the sidewalk. No head trauma or LOC reported. Was seen at Urgent Care at that time, had X-rays and was told they were negative for fracture. Has been having ongoing pain and increasing difficulty w/ ambulation since. Seen by PCP few days ago and referred for MRI, states results would be called in to PCP today however pt unable to wait due to pain. Brought copy of discs from [facility] w/ report, showing subacute left hip fracture. She was admitted to the hospital. I discussed the situation with the ER physician. We decided to obtain a CT scan to further evaluate this as well. This was completed. Of note the patient also had an MRI done fairly recently due to some right hip pain which was found out to be tendinosis. She says the left hip is hurting much worse than the right. Review of Systems A 12 point review of systems was reviewed and is negative unless as specified in the history of present illness. [facility] - History History Provided By: Patient - Medical History Medical History: Medical History (Last Reviewed 02/26/18 @ 10:49 by Jeferson López MD) GERD (gastroesophageal reflux disease) Gastroparesis Hyperparathyroidism Hypocalcemia Presbyesophagus Severe osteopetrosis Sleep apnea with use of continuous positive airway pressure (CPAP) - Surgical History Surgical History: Surgical History (Last Reviewed 02/26/18 @ 10:49 by Jeferson López MD) H/O left hemicolectomy - Family History Family History: Family History (Last Updated 02/26/18 @ 10:55 by Jeferson López MD) Other Family history non-contributory - Tobacco History Second Hand Smoke Exposure: No Smoking Status: Never smoker - Alcohol History How Often Do You Have a Drink Containing Alcohol: Never - Substance Use History Substance History: No History of Abuse - Travel History Recent Travel in the [place] Within the Last 8 Weeks: No Recent Travel Out of the Country Within the Last 8 Weeks: No - Immunization History Tetanus Immunization: Unsure Tetanus Immunization Year if Known: 2009 Hx Influenza Vaccine This Season: Yes Medications and Allergies Active Medications: Active Medications Al Hydroxide/Mg Hydroxide (Milk Of Magnesia Liq) 30 ml PO Q12H PRN PRN Reason: Mild Constipation Bisacodyl (Dulcolax Supp) 10 mg RECTAL DAILY PRN PRN Reason: SEVERE CONSITIPATION Chlorhexidine Gluconate (Chlorhexidine 2% Cloth) 3 pack [employer] [facility] Stop: 02/28/18 20:58 Hydromorphone HCl (Dilaudid Pf Inj) 1 mg IV.PUSH Q3H PRN PRN Reason: PAIN 6-10;IF UNABLE TO TAKE PO Last Admin: 02/26/18 10:06 Dose: 1 mg Hydromorphone HCl (Dilaudid Pf Inj) 0.5 mg IV.PUSH Q3H PRN PRN Reason: PAIN 3-5; IF UABLE TO TAKE PO Sodium Chloride (Ns Inj) 1,000 mls @ 100 mls/hr IV.CONT .Q10H [facility] Last Admin: 02/26/18 06:06 Dose: Not Given Sodium Chloride (Ns Inj) 500 mls @ 30 mls/hr IV.SIG .Q10H [facility] Stop: 02/28/18 20:58 Lactated Ringer's (Lr 1000 Ml Inj) 1,000 mls @ 30 mls/hr IV.SIG .Q24H [facility] Stop: 02/28/18 20:58 Last Admin: 02/25/18 23:17 Dose: 30 mls/hr Lactulose (Lactulose Liq) 30 ml PO DAILY PRN PRN Reason: SEVERE CONSITIPATION Metoprolol Tartrate (Lopressor) 25 mg PO [employer] [facility] Stop: 02/28/18 20:58 Ondansetron HCl (Zofran Inj) 4 mg IV.PUSH Q6H PRN PRN Reason: NAUSEA OR VOMITING Last Admin: 02/26/18 06:31 Dose: 4 mg Povidone Iodine (Betadine 5% Antisepsis Kit) 1 applicatio EACH [employer] [facility] Stop: 02/28/18 20:58 Senna/Docusate Sodium (Martha-Colace) 1 tab PO BID [facility] Last Admin: 02/26/18 10:11 Dose: Not Given Sennosides (Senokot) 17.2 mg PO Q12H PRN PRN Reason: Moderate Constipation Temazepam (Restoril) 15 mg PO HS PRN PRN Reason: INSOMNIA Allergies Allergy/AdvReac Type Severity Reaction Status Date / Time doxycycline AdvReac Severe Vertigo Verified 02/25/18 16:03 meperidine AdvReac Severe Psychosis Verified 02/25/18 16:04 codeine AdvReac Mild Irritabilit Verified 02/25/18 16:04 y/Anxiety Home Medications Medication Instructions Recorded Confirmed Type cyclosporine [Restasis] 1 drp EACH EYE Q12H 02/25/18 02/25/18 History hyoscyamine sulfate [Levsin/SL] 0.125 mg SUBLINGUAL PRN 02/25/18 02/25/18 History metronidazole [Flagyl] 500 mg PO BID 02/25/18 02/25/18 History omeprazole 40 mg PO BID 02/25/18 02/25/18 History prednisolone acetate LEFT EYE BID 02/25/18 History ranitidine HCl [Zantac] 150 mg PO HS 02/25/18 02/25/18 History sucralfate [Carafate] 10 ml PO QID PRN 02/25/18 02/25/18 History Exam Vital signs: Vital Signs 02/25/18 14:09 02/25/18 17:11 02/25/18 17:48 Temperature 98.3 F Pulse Rate 85 71 67 Respiratory Rate 20 18 18 Blood Pressure 110/73 124/87 142/80 H Pulse Oximetry 96 02/25/18 18:50 02/25/18 20:00 02/26/18 00:00 Temperature 97.7 F 97.2 F L Pulse Rate 70 62 Respiratory Rate 18 17 19 Blood Pressure 120/77 121/70 Pulse Oximetry 96 97 02/26/18 04:00 02/26/18 08:00 Temperature 97.2 F L 97.8 F Pulse Rate 55 L 78 Respiratory Rate 17 16 Blood Pressure 98/54 L 109/57 L Pulse Oximetry 97 97 Intake & Output 02/25/18 02/26/18 02/26/18 18:59 06:59 18:59 Intake Total 420 / 420 Output Total 200 / 200 Balance 220 / 220 Weight 69.4 kg 74.4 kg Intake: Oral 420 / 420 Output: Urine 200 / 200 Other: # Voids 2 Narrative: GENERAL: The patient is awake, alert and oriented x3. The patient is no significant distress. The is at the bedside. PSYCHIATRIC: Normal affect, insight, and judgment. HEENT: Head is atraumatic. Oropharynx is moist. Extraocular muscles are intact. NECK: Non-tender and supple. LUNGS: No audible wheezing. He has normal inspiratory effort with no signs of dyspnea HEART: Regular rate and rhythm. ABDOMEN: Soft, nontender, and nondistended. BACK: No CVA tenderness. EXTREMITIES/SKIN/NEURO/VASCULAR: She has multiple areas that are well-healed including around the left pelvis from previous skin excision. Left hip has no significant swelling. There is no bruising and no wound is noted. She does have pain with logrolling of the left hip. No pain with logrolling of the right hip. She moves the toes well on the bilateral feet. She has 2+ dorsalis pedis pulse bilaterally. There is minor tenderness over the left greater trochanter. The upper extremities have good range of motion with no referred pain. Results - Labs Result Diagrams: 02/26/18 07:05 02/26/18 07:05 Labs: Laboratory Results - last 24 hr 02/25/18 02/25/18 02/25/18 17:41 17:41 17:41 WBC 5.6 RBC 4.28 Hgb 13.0 Hct 38.3 MCV 89.4 MCH 30.3 MCHC 33.9 RDW 14.6 Plt Count 268 MPV 7.9 Neut % (Auto) 61.0 Lymph % (Auto) 26.9 [place] % (Auto) 7.2 Eos % (Auto) 4.2 H Baso % (Auto) 0.7 Neut # (Auto) 3.4 Lymph # (Auto) 1.5 [place] # (Auto) 0.4 Eos # (Auto) 0.2 Baso # (Auto) 0.0 WBC Differential . Differential Comment Auto diff final PT 9.4 L INR 0.9 APTT 47.2 H Sodium 143 Potassium 4.1 Chloride 110 H Carbon Dioxide 24.6 Anion Gap 8 BUN 11 Creatinine 0.73 Estimated GFR 81 L Random Glucose 86 Calcium 8.6 Total Bilirubin 0.3 AST 34 ALT 46 Alkaline Phosphatase 115 Total Protein 6.4 Albumin 3.4 Triglycerides Cholesterol LDL Cholesterol, Calc HDL Cholesterol Cholesterol/HDL Ratio Lipase Blood Type Blood Type Recheck Antibody Screen 02/25/18 02/26/18 02/26/18 20:40 07:05 07:05 WBC 7.4 RBC 4.16 Hgb 12.4 Hct 37.2 MCV 89.3 MCH 29.8 MCHC 33.3 RDW 14.8 Plt Count 236 MPV 7.8 Neut % (Auto) 76.1 H Lymph % (Auto) 16.5 [place] % (Auto) 4.4 Eos % (Auto) 2.5 Baso % (Auto) 0.5 Neut # (Auto) 5.7 Lymph # (Auto) 1.2 [place] # (Auto) 0.3 Eos # (Auto) 0.2 Baso # (Auto) 0.0 WBC Differential . Differential Comment Auto diff final PT INR APTT Sodium 141 Potassium 3.8 Chloride 107 Carbon Dioxide 25.1 Anion Gap 9 BUN 18 Creatinine 0.66 Estimated GFR Greater than 89 Random Glucose 90 Calcium 8.2 L Total Bilirubin 0.2 AST 117 H ALT 96 H Alkaline Phosphatase 130 H Total Protein 5.9 L Albumin 3.4 Triglycerides Cholesterol LDL Cholesterol, Calc HDL Cholesterol Cholesterol/HDL Ratio Lipase Blood Type O Positive Blood Type Recheck Required Antibody Screen Negative 02/26/18 07:05 WBC RBC Hgb Hct MCV MCH MCHC RDW Plt Count MPV Neut % (Auto) Lymph % (Auto) [place] % (Auto) Eos % (Auto) Baso % (Auto) Neut # (Auto) Lymph # (Auto) [place] # (Auto) Eos # (Auto) Baso # (Auto) WBC Differential Differential Comment PT INR APTT Sodium Potassium Chloride Carbon Dioxide Anion Gap BUN Creatinine Estimated GFR Random Glucose Calcium Total Bilirubin AST ALT Alkaline Phosphatase Total Protein Albumin Triglycerides 164 H Cholesterol 105 L LDL Cholesterol, Calc 29 HDL Cholesterol 43.4 Cholesterol/HDL Ratio 2.41 Lipase 206 Blood Type Blood Type Recheck Antibody Screen - Diagnostic results Imaging: Impressions Hip CT 02/25/18 20:51 CONCLUSION: 1. No displaced fracture. Reportedly prior MRI revealed intertrochanteric fracture. Faint band of sclerosis seen in the lower femoral neck possibly related to subacute fracture or stress reaction. Mild osteoarthritis of the left hip. I reviewed an MRI of the left hip also which does show that there is significant edema within the femoral neck and intertrochanteric line which has been read by the radiologist and I agree showing fractures of these areas. Assessment and Plan - Assessment and Plan Left hip intertrochanteric and femoral neck fracture per recent MRI scanning status post fall a little over a week ago. Past medical history consistent with Keenan-Danlos, Malabsorption s/p Port Placement and Osteoporosis. This is a difficult situation as far as management is concerned. We did discuss the option of operative and nonoperative management for this condition. We discussed chances for displacement if nonoperative management were to be considered. We discussed clinical course for nonoperative management. We discussed the serious nature of having a hip fracture. The patient does not feel very functional at this point because of the amount of pain of the left hip. She is very concerned about displacement or other further difficulties with the hip especially given her history of the osteoporosis. She also has a history of malabsorption syndrome which makes it very difficult for her to manage her pain with oral medicines. We did discuss the potential difficulty of managing her pain postoperatively if we move forward with surgery. We discussed different options as far as surgery is concerned including percutaneous screw fixation versus fixation with intramedullary nail. We discussed differences in postoperative protocols for these types of fixations. The patient tells me she wants to move forward with surgical management and would like to move forward with intramedullary nail stabilization. The risks and benefits of surgical management have been discussed in detail. The risks of surgery include, but are not limited to, injury to nerves, blood vessels, bleeding, infection, non-healing; loss of range on motion, dysfunction or weakness of the associated joints; blood clots, pneumonia, stroke, heart attack, and . - Attending Attestation Attending Attestation: A mid level provider in my office, nurse practitioner or PA, may see this patient on a follow up basis and continue to implement the plan including: starting or adjusting medications, injections of muscle, tendons, bursa or joints, cast application, orthotic or brace application, physical therapy, further radiographic studies including X-ray, MRI, CT, ultrasound or bone scan , vascular studies, neurological studies, or other specialist consultations, and proceeding with surgical management as appropriate.
--- NOTE | 2018-02-26 11:32 | P.PN ---
Subjective Interval history: Follow-up on patient with left hip fracture. Patient seen and examined. Patient complaining of headache and left hip pain. She denies any fever or chills. She denies any chest pain or shortness of breath. She denies any nausea, vomiting or abdominal pain. She is currently n.p.o. for surgical intervention later today. Physical Exam Vital signs: Vital Signs 02/25/18 14:09 02/25/18 17:11 02/25/18 17:48 Temperature 98.3 F Pulse Rate 85 71 67 Respiratory Rate 20 18 18 Blood Pressure 110/73 124/87 142/80 H Pulse Oximetry 96 02/25/18 18:50 02/25/18 20:00 02/26/18 00:00 Temperature 97.7 F 97.2 F L Pulse Rate 70 62 Respiratory Rate 18 17 19 Blood Pressure 120/77 121/70 Pulse Oximetry 96 97 02/26/18 04:00 02/26/18 08:00 Temperature 97.2 F L 97.8 F Pulse Rate 55 L 78 Respiratory Rate 17 16 Blood Pressure 98/54 L 109/57 L Pulse Oximetry 97 97 Intake & Output 02/25/18 02/26/18 02/26/18 18:59 06:59 18:59 Intake Total 420 / 420 Output Total 200 / 200 Balance 220 / 220 Weight 69.4 kg 74.4 kg Intake: Oral 420 / 420 Output: Urine 200 / 200 Other: # Voids 2 Narrative: GENERAL: WDWN middle aged female INAD. Awake and alert. SKIN: Warm and dry. No generalized rash. HEAD: Atraumatic. Normocephalic. EYES: EOMI. No scleral icterus. No injection or drainage. ENT: No nasal bleeding or discharge. Mucous membranes pink and moist. NECK: Trachea midline. No JVD. CARDIOVASCULAR: Regular rate and rhythm with no murmurs, rubs or gallops. RESPIRATORY: No accessory muscle use. Clear to auscultation anteriorly. Breath sounds equal bilaterally. GASTROINTESTINAL: Abdomen soft, non-tender, nondistended. Hepatic and splenic margins not palpable. MUSCULOSKELETAL: No obvious deformities. No edema in BLE. +Tenderness to palpation over left hip. ROM not tested. Motor function intact distally. NEUROLOGICAL: Awake and alert. No obvious cranial nerve deficits. Motor grossly within normal limits. Able to move all extremities spontaneously. Normal speech. PSYCHIATRIC: Appropriate mood and affect; insight and judgment normal. Results - Labs CBC & Chem 7: 02/26/18 07:05 02/26/18 07:05 Laboratory Results - last 24 hr 02/25/18 02/25/18 02/25/18 17:41 17:41 17:41 WBC 5.6 RBC 4.28 Hgb 13.0 Hct 38.3 MCV 89.4 MCH 30.3 MCHC 33.9 RDW 14.6 Plt Count 268 MPV 7.9 Neut % (Auto) 61.0 Lymph % (Auto) 26.9 [place] % (Auto) 7.2 Eos % (Auto) 4.2 H Baso % (Auto) 0.7 Neut # (Auto) 3.4 Lymph # (Auto) 1.5 [place] # (Auto) 0.4 Eos # (Auto) 0.2 Baso # (Auto) 0.0 WBC Differential . Differential Comment Auto diff final PT 9.4 L INR 0.9 APTT 47.2 H Sodium 143 Potassium 4.1 Chloride 110 H Carbon Dioxide 24.6 Anion Gap 8 BUN 11 Creatinine 0.73 Estimated GFR 81 L Random Glucose 86 Calcium 8.6 Total Bilirubin 0.3 AST 34 ALT 46 Alkaline Phosphatase 115 Total Protein 6.4 Albumin 3.4 Triglycerides Cholesterol LDL Cholesterol, Calc HDL Cholesterol Cholesterol/HDL Ratio Lipase Blood Type Blood Type Recheck Antibody Screen 02/25/18 02/26/18 02/26/18 20:40 07:05 07:05 WBC 7.4 RBC 4.16 Hgb 12.4 Hct 37.2 MCV 89.3 MCH 29.8 MCHC 33.3 RDW 14.8 Plt Count 236 MPV 7.8 Neut % (Auto) 76.1 H Lymph % (Auto) 16.5 [place] % (Auto) 4.4 Eos % (Auto) 2.5 Baso % (Auto) 0.5 Neut # (Auto) 5.7 Lymph # (Auto) 1.2 [place] # (Auto) 0.3 Eos # (Auto) 0.2 Baso # (Auto) 0.0 WBC Differential . Differential Comment Auto diff final PT INR APTT Sodium 141 Potassium 3.8 Chloride 107 Carbon Dioxide 25.1 Anion Gap 9 BUN 18 Creatinine 0.66 Estimated GFR Greater than 89 Random Glucose 90 Calcium 8.2 L Total Bilirubin 0.2 AST 117 H ALT 96 H Alkaline Phosphatase 130 H Total Protein 5.9 L Albumin 3.4 Triglycerides Cholesterol LDL Cholesterol, Calc HDL Cholesterol Cholesterol/HDL Ratio Lipase Blood Type O Positive Blood Type Recheck Required Antibody Screen Negative 02/26/18 07:05 WBC RBC Hgb Hct MCV MCH MCHC RDW Plt Count MPV Neut % (Auto) Lymph % (Auto) [place] % (Auto) Eos % (Auto) Baso % (Auto) Neut # (Auto) Lymph # (Auto) [place] # (Auto) Eos # (Auto) Baso # (Auto) WBC Differential Differential Comment PT INR APTT Sodium Potassium Chloride Carbon Dioxide Anion Gap BUN Creatinine Estimated GFR Random Glucose Calcium Total Bilirubin AST ALT Alkaline Phosphatase Total Protein Albumin Triglycerides 164 H Cholesterol 105 L LDL Cholesterol, Calc 29 HDL Cholesterol 43.4 Cholesterol/HDL Ratio 2.41 Lipase 206 Blood Type Blood Type Recheck Antibody Screen - Imaging Impressions Hip CT 02/25/18 20:51 CONCLUSION: 1. No displaced fracture. Reportedly prior MRI revealed intertrochanteric fracture. Faint band of sclerosis seen in the lower femoral neck possibly related to subacute fracture or stress reaction. Mild osteoarthritis of the left hip. Assessment and Plan - Assessment (1) Hip fracture, left Code(s): S72.002A - Fracture of unspecified part of neck of left femur, initial encounter for closed fracture Status: Acute (2) Intractable pain Code(s): R52 - Pain, unspecified Status: Acute (3) Malabsorption Code(s): K90.9 - Intestinal malabsorption, unspecified Status: Acute - Plan 63-year-old female with a PMH of Keenan-Danlos, Malabsorption s/p Port Placement and Osteoporosis who presented to the ER w/ complaints of severe left hip pain found to have an occult left hip fracture. Left Hip Fx s/p mechanical fall approx 1wk ago -Ortho following, plan for surgical intervention later today -Keep NPO -pain medication with bowel regimen Malabsorption: Chronic. Right chest port in place. Patient is requesting to be continued on high protein/high calorie diet -will resume postop Hypotensive, suspect 2/2 IV narcotics MAP 66 -Give IVF bolus -fall precautions -hold parameters placed on IV pain medications Transaminitis ?DILI - patient given Toradol in ED AST trended up from 34 to 117 ALT trended up from 46 to 96 Lipase 206 -avoid hepatotoxic agents -d/c Acetaminophen -trend LFTs Headache -give Tramadol x 1 dose now -monitor for improvement DVT Prophylaxis: Anticoagulation post op per Ortho service Code Status: FULL Discussed Condition With: patient, nursing staff, Dr. Ravi Discharge Planning: Not ready for discharge. For surgical intervention later today.
[2018-02-26] MEDS ORDERED: Lidocaine PF 1% Inj 5 ML Syringe INFILTRATN ONE (12:00)
[2018-02-26] MEDS ORDERED: Succinylcholine Inj 200 MG/10 ML Vial IV.PUSH ONE (12:00)
[2018-02-26] MEDS ORDERED: Phenylephrine/NS 1000 MCG/10ML Syringe IV.PUSH ONE (12:00)
--- NOTE | 2018-02-26 13:57 | ECG ---
Date Performed: 02/25/2018 Time Performed: 21:12:15 PTAGE: 63 years EKG: Sinus rhythm WITH OCCASIONAL VENTRICULAR PREMATURE COMPLEXES BORDERLINE ECG Since the PREVIOUS TRACING , no significant change noted PREVIOUS TRACIN02/14/2006 15.08 DOCTOR: Didi Mcpherson Interpretating Date/Time 02/26/2018 13:56:07
[2018-02-26] MEDS ORDERED: Sodium Chlor 0.9% Inj 250 ML IV.SIG ONE (15:11)
[2018-02-26] MEDS ORDERED: ceFAZolin 2 GM Premix Inj 2 GM/50 ML PIGGYBACK IV.SIG ONE (16:01)
[2018-02-26] MEDS ORDERED: Tranexamic Acid Inj 1,000 MG in Sodium Chlor 0.9% Inj 100 ML IV.SIG SCH (16:50)
--- NOTE | 2018-02-26 18:10 | P.OP ---
- Preoperative Diagnosis (1) Hip fracture, left Comment: Left hip intertrochanteric fracture - Postoperative Diagnosis (1) Hip fracture, left Comment: Left hip intertrochanteric fracture Date of procedure: 02/26/18 Procedure: Left hip treatment of intertrochanteric fracture with intramedullary nail Anesthesia: MIKAEL Surgeon: Jeferson López MD Director Project Management: SANTIAGO Uriarte The surgical procedure was assisted by my Advanced Registered Nurse Practitioner. My DOCUMENTATION ENGINEER presence was necessary throughout this case for the manipulation and positioning of the surgical extremity. My DOCUMENTATION ENGINEER was assisting me throughout the duration of this procedure. The skill set of an Advance Registered Nurse Practitioner was medically necessary to complete this procedure. During the surgical case, the surgical services asst was working at the back table and the Advance Registered Nurse Practitioner was directly assisting me. Operation and Findings: Estimated blood loss: 75 cc Implants: Synthes short trochanteric nail, size: 12 x 130 The patient received intravenous vancomycin and Ancef. After the appropriate anesthesia was administered, and the patient was transferred to the fracture table. The fracture was visualized to be anatomic under fluoroscopic imaging. The hip was prepped and draped in usual sterile fashion. We made incision just proximal to the tip of the greater trochanter. We dissected down through the deep fascia. We used a threaded guidewire at the tip of the greater trochanter which was placed down to the metaphyseal region on both the AP and lateral views. We reamed proximally. Using fluoroscopic analysis we templated the appropriate size for the short nail. This nail was then placed into position under fluoroscopic guidance. We made incision laterally based on the position of the associated jig. We then placed a threaded guidewire into the center, center of the femoral head. The appropriate length for the helical blade was measured. We drilled laterally and then step reamed the femoral neck and femoral head region. The helical blade was placed into position. We then tightened the proximal set screw, which was followed by releasing one turn off of the screw to allow for compression. Traction was released from the leg. The nail was secured distally with a single screw off of the jig using fluoroscopic guidance. We took final fluoroscopic imaging which revealed that the fracture was in very good position. The hardware was in good position as well. The wounds were thoroughly irrigated and then closed with a 0 Vicryl followed by 2-0 Vicryl and markell. The postoperative plan is to start full weightbearing. Additionally, we will initiate postoperative antibiotics for 24 hours along with DVT prophylaxis consisting of early mobilization, SCDs, compression stockings, and Lovenox followed by aspirin.
[2018-02-26] MEDS ORDERED: Aluminum/Magnesium/Simethacone Susp 30 ML UDC PO PRN (18:11)
[2018-02-26] MEDS ORDERED: oxyCODONE/Acetaminophen 10/325 Tablet PO PRN ×2 (18:11)
[2018-02-26] MEDS ORDERED: Post-op Orders (for Pharmacy) OTHER STA (18:11)
[2018-02-26] MEDS ORDERED: Bisacodyl 10 MG Supp RECTAL PRN (18:11)
[2018-02-26] MEDS ORDERED: *morphine SULFATE 10 MG/ML PERIprocedure ONLY ONE (18:45)
[2018-02-26] MEDS ORDERED: fentaNYL Citrate Inj 100 MCG/2 ML Ampul ONE ×2 (18:46)
[2018-02-26] MEDS ORDERED: Morphine Inj 4 MG/ML Vial ONE (18:47)
[2018-02-26] MEDS ORDERED: HYDROmorphone PF Inj 2 MG/ML Vial IV.PUSH ONE (19:45)
--- NOTE | 2018-02-26 22:08 | XR ---
EXAM DATE: 02/26/2018 9:44 PM EDT AGE/SEX: 63 years / Female INDICATIONS: Open reduction left hip. CLINICAL DATA: This is the patient's subsequent encounter. Patient reports that signs and symptoms h ave been present for 2 days and indicates a pain score of Nonresponsive. MEDICAL/SURGICAL HISTORY: None. None. COMPARISON: No prior exams available for comparison. FINDINGS: 4 digital spot images of the left hip. Left-sided hip screw is in place. Alignment near-anatomic. CONCLUSION: Left-sided hip screw in place. Electronically signed by: Hiram Fletcher MD 02/26/2018 10:06 PM EDT
[2018-02-27] MEDS: HYDROmorphone PF Inj 2 MG/ML Vial IV.PUSH PRN ×6 (04:24→23:15)
[2018-02-27] MEDS: Senna/Docusate Sodium 8.6/50 MG Tablet PO SCH ×4 (04:38→09:08)
[2018-02-27] MEDS: Multivitamin/Minerals Therapeutic Tablet PO SCH ×3 (04:38→20:03)
[2018-02-27] MEDS: Sod Chloride 0.9% Inj 1,000 ML IV.CONT SCH (04:39)
--- NOTE | 2018-02-27 07:33 | P.PNOP ---
Subjective Interval history: Patient states her left hip pain is improving from yesterday. Patient states she has been able to walk to the bathroom. Physical Exam Vital signs: Vital Signs 02/26/18 08:00 02/26/18 12:00 02/26/18 16:00 Temperature 97.8 F 97.9 F 98.4 F Pulse Rate 78 84 81 Respiratory Rate 16 15 16 Blood Pressure 109/57 L 90/55 L 100/65 Pulse Oximetry 97 96 98 02/26/18 18:37 02/26/18 19:00 02/26/18 19:15 Temperature 97.6 F Pulse Rate 88 73 67 Respiratory Rate 22 20 12 Blood Pressure 138/74 127/78 121/69 Pulse Oximetry 94 L 98 02/26/18 19:20 02/26/18 19:30 02/26/18 19:45 Temperature 98.5 F Pulse Rate 87 87 95 H Respiratory Rate 8 L 12 8 L Blood Pressure 118/71 115/56 L 109/58 L Pulse Oximetry 98 02/26/18 20:00 02/26/18 21:47 02/26/18 22:00 Temperature 97.8 F Pulse Rate 91 H Respiratory Rate 20 15 15 Blood Pressure 109/61 Pulse Oximetry 96 02/27/18 00:00 02/27/18 04:00 Temperature 97.3 F L 97.8 F Pulse Rate 94 H 77 Respiratory Rate 18 18 Blood Pressure 118/62 118/70 Pulse Oximetry 98 99 Intake & Output 02/26/18 02/27/18 02/27/18 18:59 06:59 18:59 Intake Total 1500 / 1500 1600 / 1600 Output Total 50 / 50 600 / 600 Balance 1450 / 1450 1000 / 1000 Weight 74.9 kg Intake: IV 1000 / 1000 1100 / 1100 NS Inj 1,000 ML @ 100 mls/hr IV 1000 / 1000 .CONT .Q10H DANY Rx#:[id number] LR 1000 mL Inj 1,000 ML @ 30 1000 / 1000 mls/hr IV.SIG .Q24H DANY Rx#: [id number] Ancef Inj 1,000 MG In NS Inj 100 / 100 100 ML @ 200 mls/hr IV.SIG Q6H DANY Rx#:[id number] Anesthesia Amount 500 / 500 500 / 500 Output: Urine 600 / 600 Estimated Blood Loss 50 / 50 Other: # Voids 2 # Bowel Movements 2 Narrative: The patient's dressings are C/D/I. EHL/TA/G intact. 2+ pedal pulse. Calf is soft and nontender. + SILT distally. Results - Labs CBC & Chem 7: 02/26/18 07:05 02/26/18 07:05 Laboratory Results - last 24 hr 02/26/18 02/26/18 02/26/18 07:05 07:05 07:05 WBC 7.4 RBC 4.16 Hgb 12.4 Hct 37.2 MCV 89.3 MCH 29.8 MCHC 33.3 RDW 14.8 Plt Count 236 MPV 7.8 Neut % (Auto) 76.1 H Lymph % (Auto) 16.5 [place] % (Auto) 4.4 Eos % (Auto) 2.5 Baso % (Auto) 0.5 Neut # (Auto) 5.7 Lymph # (Auto) 1.2 [place] # (Auto) 0.3 Eos # (Auto) 0.2 Baso # (Auto) 0.0 WBC Differential . Differential Comment Auto diff final Sodium 141 Potassium 3.8 Chloride 107 Carbon Dioxide 25.1 Anion Gap 9 BUN 18 Creatinine 0.66 Estimated GFR Greater than 89 Random Glucose 90 Calcium 8.2 L Total Bilirubin 0.2 AST 117 H ALT 96 H Alkaline Phosphatase 130 H Total Protein 5.9 L Albumin 3.4 Triglycerides 164 H Cholesterol 105 L LDL Cholesterol, Calc 29 HDL Cholesterol 43.4 Cholesterol/HDL Ratio 2.41 Lipase 206 - Imaging Impressions Hip X-Ray 02/26/18 00:00 CONCLUSION: Left-sided hip screw in place. Assessment and Plan - Assessment and Plan POD #1: Left IMN for left hip intertrochanteric fracture 1. WBAT LLE 2. Lovenox followed by ASA for DVT prophylaxis 3. Ice to the left hip PRN 4. Stable per ortho 5. F/U in the office in 1-[address] López or SANTIAGO Bradshaw
[2018-02-27 08:15] LABS: Baso % (Auto) 0.2 % (0.0-2.0); Eos # (Auto) 0.1 th/mm3 (0.0-0.4); Hematocrit 34.2 % (35.0-46.0); Hemoglobin 11.5 gm/dL (11.6-15.3); Lymph # (Auto) 0.8 th/mm3 (1.0-4.8); Lymph % (Auto) 14.3 % (9.0-44.0); Mean Corpuscular HGB Conc 33.6 % (32.0-36.0); Mean Corpuscular Hemoglobin 29.8 pg (27.0-34.0); Mean Corpuscular Volume 88.7 fL (80.0-100.0); Mean Platelet Volume 7.8 fL (7.0-11.0); Mono # (Auto) 0.6 th/mm3 (0.0-0.9); Mono % (Auto) 11.4 % (0.0-8.0); Neut # (Auto) 3.9 th/mm3 (1.8-7.7); Neut % (Auto) 73.1 % (16.0-70.0); Platelet Count 236 th/mm3 (150-450); Red Blood Count 3.86 mil/mm3 (4.00-5.30); Red Cell Distribution Width 14.4 % (11.6-17.2); White Blood Count 5.3 th/mm3 (4.0-11.0)
[2018-02-27 08:52] LABS: Alanine Aminotransferase 674 U/L (10-53); Albumin 3.1 g/dL (3.4-5.0); Alkaline Phosphatase 293 U/L (45-117); Anion Gap 6 meq/L (5-15); Aspartate Aminotransferase 763 U/L (15-37); Blood Urea Nitrogen 13 mg/dL (7-18); Calcium 8.4 mg/dL (8.5-10.1); Carbon Dioxide 28.7 meq/L (21.0-32.0); Chloride 105 meq/L (98-107); Glomerular Filtration Rate 89 mL/min (>89); Glucose,Random 127 mg/dL (74-106); Potassium 4.2 meq/L (3.5-5.1); Sodium 140 meq/L (136-145); Total Protein 5.6 g/dL (6.4-8.2)
--- NOTE | 2018-02-27 11:29 | P.PN ---
Subjective Interval history: Follow up on patient with left hip fracture, s/p IM nail. Patient seen and examined. She reports her postoperative pain presently controlled. She denies any fever chills. She denies any chest pain or shortness of breath. Her LFTs have elevated significantly. She denies any nausea, vomiting or abdominal pain. She has not had a bowel movement but is passing flatus. She was able to ambulate 40ft with PT yesterday after surgery. Physical Exam Vital signs: Vital Signs 02/26/18 12:00 02/26/18 16:00 02/26/18 18:37 Temperature 97.9 F 98.4 F 97.6 F Pulse Rate 84 81 88 Respiratory Rate 15 16 22 Blood Pressure 90/55 L 100/65 138/74 Pulse Oximetry 96 98 94 L 02/26/18 19:00 02/26/18 19:15 02/26/18 19:20 Temperature Pulse Rate 73 67 87 Respiratory Rate 20 12 8 L Blood Pressure 127/78 121/69 118/71 Pulse Oximetry 98 02/26/18 19:30 02/26/18 19:45 02/26/18 20:00 Temperature 98.5 F 97.8 F Pulse Rate 87 95 H 91 H Respiratory Rate 12 8 L 20 Blood Pressure 115/56 L 109/58 L 109/61 Pulse Oximetry 98 96 02/26/18 21:47 02/26/18 22:00 02/27/18 00:00 Temperature 97.3 F L Pulse Rate 94 H Respiratory Rate 15 15 18 Blood Pressure 118/62 Pulse Oximetry 98 02/27/18 04:00 02/27/18 08:00 Temperature 97.8 F 98.1 F Pulse Rate 77 68 Respiratory Rate 18 18 Blood Pressure 118/70 111/71 Pulse Oximetry 99 94 L Intake & Output 02/26/18 02/27/18 02/27/18 18:59 06:59 18:59 Intake Total 1500 / 1500 1600 / 1600 Output Total 50 / 50 600 / 600 Balance 1450 / 1450 1000 / 1000 Weight 74.9 kg Intake: IV 1000 / 1000 1100 / 1100 NS Inj 1,000 ML @ 100 mls/hr IV 1000 / 1000 .CONT .Q10H DANY Rx#:[id number] LR 1000 mL Inj 1,000 ML @ 30 1000 / 1000 mls/hr IV.SIG .Q24H DANY Rx#: [id number] Ancef Inj 1,000 MG In NS Inj 100 / 100 100 ML @ 200 mls/hr IV.SIG Q6H DANY Rx#:[id number] Anesthesia Amount 500 / 500 500 / 500 Output: Urine 600 / 600 Estimated Blood Loss 50 / 50 Other: # Voids 2 # Bowel Movements 2 Narrative: GENERAL: WDWN middle aged female INAD. Awake and alert. Lying in bed. SKIN: Warm and dry. No generalized rash. HEAD: Atraumatic. Normocephalic. EYES: EOMI. No scleral icterus. No injection or drainage. ENT: No nasal bleeding or discharge. Mucous membranes pink and moist. NECK: Trachea midline. No JVD. CARDIOVASCULAR: Regular rate and rhythm with no murmurs, rubs or gallops. RESPIRATORY: No accessory muscle use. Clear to auscultation anteriorly. Breath sounds equal bilaterally. GASTROINTESTINAL: Abdomen soft, non-tender, nondistended. Hypoactive BS. MUSCULOSKELETAL: No obvious deformities. No edema in BLE. s/p Left hip IMN, postop dressings C/D/I. Motor function intact distally. NEUROLOGICAL: Awake and alert. No obvious cranial nerve deficits. Able to move all extremities spontaneously. Nonfocal. Normal speech. PSYCHIATRIC: Appropriate mood and affect; insight and judgment normal. Results - Labs CBC & Chem 7: 02/27/18 07:30 02/27/18 07:30 Laboratory Results - last 24 hr 02/27/18 02/27/18 07:30 07:30 WBC 5.3 RBC 3.86 L Hgb 11.5 L Hct 34.2 L MCV 88.7 MCH 29.8 MCHC 33.6 RDW 14.4 Plt Count 236 MPV 7.8 Neut % (Auto) 73.1 H Lymph % (Auto) 14.3 [place] % (Auto) 11.4 H Eos % (Auto) 1.0 Baso % (Auto) 0.2 Neut # (Auto) 3.9 Lymph # (Auto) 0.8 L [place] # (Auto) 0.6 Eos # (Auto) 0.1 Baso # (Auto) 0.0 WBC Differential . Differential Comment Auto diff final Sodium 140 Potassium 4.2 Chloride 105 Carbon Dioxide 28.7 Anion Gap 6 BUN 13 Creatinine 0.67 Estimated GFR 89 Random Glucose 127 H Calcium 8.4 L Total Bilirubin 0.3 AST 763 H ALT 674 H Alkaline Phosphatase 293 H Total Protein 5.6 L Albumin 3.1 L - Imaging Impressions Hip X-Ray 02/26/18 00:00 CONCLUSION: Left-sided hip screw in place. - Procedures - Preoperative Diagnosis (1) Hip fracture, left Comment: Left hip intertrochanteric fracture - Postoperative Diagnosis (1) Hip fracture, left Comment: Left hip intertrochanteric fracture Date of procedure: 02/26/18 Procedure: Left hip treatment of intertrochanteric fracture with intramedullary nail Anesthesia: GETA Surgeon: Jeferson López MD Safety Intern: SANTIAGO Uriarte The surgical procedure was assisted by my Advanced Registered Nurse Practitioner. My KEG FILLER presence was necessary throughout this case for the manipulation and positioning of the surgical extremity. My KEG FILLER was assisting me throughout the duration of this procedure. The skill set of an Advance Registered Nurse Practitioner was medically necessary to complete this procedure. During the surgical case, the driver license technician was working at the back table and the Advance Registered Nurse Practitioner was directly assisting me. Operation and Findings: Estimated blood loss: 75 cc Implants: Synthes short trochanteric nail, size: 12 x 130 The patient received intravenous vancomycin and Ancef. After the appropriate anesthesia was administered, and the patient was transferred to the fracture table. The fracture was visualized to be anatomic under fluoroscopic imaging. The hip was prepped and draped in usual sterile fashion. We made incision just proximal to the tip of the greater trochanter. We dissected down through the deep fascia. We used a threaded guidewire at the tip of the greater trochanter which was placed down to the metaphyseal region on both the AP and lateral views. We reamed proximally. Using fluoroscopic analysis we templated the appropriate size for the short nail. This nail was then placed into position under fluoroscopic guidance. We made incision laterally based on the position of the associated jig. We then placed a threaded guidewire into the center, center of the femoral head. The appropriate length for the helical blade was measured. We drilled laterally and then step reamed the femoral neck and femoral head region. The helical blade was placed into position. We then tightened the proximal set screw, which was followed by releasing one turn off of the screw to allow for compression. Traction was released from the leg. The nail was secured distally with a single screw off of the jig using fluoroscopic guidance. We took final fluoroscopic imaging which revealed that the fracture was in very good position. The hardware was in good position as well. The wounds were thoroughly irrigated and then closed with a 0 Vicryl followed by 2-0 Vicryl and markell. The postoperative plan is to start full weightbearing. Additionally, we will initiate postoperative antibiotics for 24 hours along with DVT prophylaxis consisting of early mobilization, SCDs, compression stockings, and Lovenox followed by aspirin. Documented By: Jeferson López MD 02/26/181805 Signed By: <Electronically signed by Jeferson López MD> 02/26/181809 Assessment and Plan - Assessment (1) Hip fracture, left Code(s): S72.002A - Fracture of unspecified part of neck of left femur, initial encounter for closed fracture Status: Acute (2) Intractable pain Code(s): R52 - Pain, unspecified Status: Acute (3) Malabsorption Code(s): K90.9 - Intestinal malabsorption, unspecified Status: Acute (4) Transaminitis Code(s): R74.0 - Nonspecific elevation of levels of transaminase and lactic acid dehydrogenase [LDH] Status: Acute - Plan 63-year-old female with a PMH of Keenan-Danlos, Malabsorption s/p Port Placement and Osteoporosis who presented to the ER w/ complaints of severe left hip pain found to have an occult left hip fracture. Left Hip Fx s/p mechanical fall approx 1wk ago 02/26 s/p IMN by Dr. López -Ortho following, WBAT LLE, Lovenox followed by ASA for DVT prophylaxis. Cleared for d/c from Ortho standpoint. -pain medication with bowel regimen Transaminitis - ?DILI patient given Toradol in ED, postop rxn, shock liver LFTs have elevated significantly AST 34 -> 763, ALT 46 -> 674 Lipase 206 8/4 -Obtain lipase level, lipid profile and Hepatitis profile -Liver US ordered -Consult GI, appreciate assistance. NPO for now. Continue IVF. -Avoid hepatotoxic agents -continue to trend LFTs Malabsorption: Chronic. Right chest port in place. Patient is requesting to be continued on high protein/high calorie diet -NPO for now -Consult welcome wagon host/hostess once back on po diet Hypotensive, suspect 2/2 IV narcotics MAP 66 -Given IVF bolus. BP better this am 111/71, MAP 84 -fall precautions -hold parameters placed on IV pain medications DVT Prophylaxis: Anticoagulation post op per Ortho service Code Status: FULL Discussed Condition With: patient, nursing staff, Dr. Ravi Discharge Planning: Not ready for discharge. LFTs markedly elevated. GI evaluation pending.
--- NOTE | 2018-02-27 14:58 | P.CONGI ---
History of Present Illness Consult date: 02/27/18 Consult reason: Transaminitis Chief complaint: left intertrochanteric fracture History of Present Illness: This is a well 63-year-old female who was admitted to the hospital on 02/25/2018 status post left hip fracture. Patient received IM nailing on 02/26/2018 and currently recovering postop. Over the past 24 hours patient developed elevated LFTs with a significant elevation to AST from 34-763 and ALT 46 08/31/1973. Current lipase 206, hemoglobin 11.5 and WBC count 5.3. Gastroenterology was consulted to assist in evaluating her acute transaminitis and GI plan of care. It is noted per the record and patient she has history of malabsorption syndrome , Keenan-Danlos and sees her outpatient PCP as well as hematology. Patient states that she has multiple malabsorption issues with her GI tract which includes dyspepsia and some dysphasia issues. She is followed on an outpatient basis per Dr. Charlton and hematology and her PCP. Patient does note recent iron infusion, IV calcium infusions via a port. Patient also notes that she takes omeprazole 40 mg twice a day, Carafate, and Zantac at night. Patient does have history of polyps and notes recent EGD colonoscopy in the past year. Any family history of colon cancer. Patient has rare alcohol intake a couple of times per year, no tattoos and no recent transfusions no IV drug history. Currently liver ultrasound is pending. Uncontrolled significant transaminitis could be related to patient's surgery which was approximately 24 hours ago, shock liver, cardiovascular compromise, or medications. Patient did note receiving Toradol in the ER and states that she has also had problems in the past with Tylenol causing her enzymes to elevate. Currently patient denies any symptoms of abdominal pain no obvious bleeding no diarrhea and no constipation. Review of Systems All other systems reviewed negative except as stated in HPI PMFSH - History History Provided By: Patient - Medical History Medical History: Medical History (Last Reviewed 02/26/18 @ 10:49 by Jeferson López MD) GERD (gastroesophageal reflux disease) Gastroparesis Hyperparathyroidism Hypocalcemia Presbyesophagus Severe osteopetrosis Sleep apnea with use of continuous positive airway pressure (CPAP) - Surgical History Surgical History: Surgical History (Last Reviewed 02/26/18 @ 10:49 by Jeferson López MD) H/O left hemicolectomy - Family History Family History: Family History (Last Updated 02/26/18 @ 10:55 by Jeferson López MD) Other Family history non-contributory - Tobacco History Second Hand Smoke Exposure: No Smoking Status: Never smoker - Alcohol History How Often Do You Have a Drink Containing Alcohol: Never - Substance Use History Substance History: No History of Abuse - Travel History Recent Travel in the [place] Within the Last 8 Weeks: No Recent Travel Out of the Country Within the Last 8 Weeks: No - Immunization History Tetanus Immunization: Unsure Tetanus Immunization Year if Known: 2009 Hx Influenza Vaccine This Season: Yes Medications and Allergies Active Medications: Active Medications Al Hydrox/Mg Hydrox/Simethicone (Mag-Al Plus Susp Liq) 30 ml PO Q6H PRN PRN Reason: INDIGESTION Al Hydroxide/Mg Hydroxide (Milk Of Magnesia Liq) 30 ml PO Q12H PRN PRN Reason: Mild Constipation Al Hydroxide/Mg Hydroxide (Milk Of Magnesia Liq) 30 ml PO BID PRN PRN Reason: Mild Constipation Bisacodyl (Dulcolax Supp) 10 mg RECTAL DAILY PRN PRN Reason: SEVERE CONSITIPATION Bisacodyl (Dulcolax Supp) 10 mg RECTAL DAILY PRN PRN Reason: SEVERE CONSITIPATION Chlorhexidine Gluconate (Chlorhexidine 2% Cloth) 3 pack 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 WORKER [facility] Stop: 02/28/18 20:58 Diphenhydramine HCl (Benadryl) 25 mg PO Q6H PRN PRN Reason: ITCHING Enoxaparin Sodium (Lovenox Inj) 40 mg SQ Q24H [facility] Hydromorphone HCl (Dilaudid Pf Inj) 0.5 mg IV.PUSH Q3H PRN PRN Reason: PAIN 3-5; IF UABLE TO TAKE PO Hydromorphone HCl (Dilaudid Pf Inj) 1 mg IV.PUSH Q3H PRN PRN Reason: PAIN 6-10;IF UNABLE TO TAKE PO Last Admin: 02/27/18 13:20 Dose: 1 mg Sodium Chloride (Ns Inj) 1,000 mls @ 100 mls/hr IV.CONT .Q10H [facility] Last Admin: 02/27/18 04:39 Dose: 100 mls/hr Sodium Chloride (Ns Inj) 500 mls @ 30 mls/hr IV.SIG .Q10H [facility] Stop: 02/28/18 20:58 Lactated Ringer's (Lr 1000 Ml Inj) 1,000 mls @ 30 mls/hr IV.SIG .Q24H [facility] Stop: 02/28/18 20:58 Last Admin: 02/26/18 16:04 Dose: 30 mls/hr Lactated Ringer's (Lr 1000 Ml Inj) 1,000 mls @ 80 mls/hr IV.CONT .[id number] [facility] Lactulose (Lactulose Liq) 30 ml PO DAILY PRN PRN Reason: SEVERE CONSITIPATION Lactulose (Lactulose Liq) 30 ml PO DAILY PRN PRN Reason: SEVERE CONSITIPATION Metoprolol Tartrate (Lopressor) 25 mg PO 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 WORKER [facility] Stop: 02/28/18 20:58 Miscellaneous Information ([facility]) 1 each OTHER UNSCH PRN PRN Reason: SEE LABEL COMMENTS Stop: 02/27/18 18:36 Multivitamins/Minerals (Theragran-M) 1 tab PO BID [facility] Stop: 04/27/18 20:59 Last Admin: 02/27/18 09:09 Dose: Not Given Ondansetron HCl (Zofran Inj) 4 mg IV.PUSH Q6H PRN PRN Reason: NAUSEA OR VOMITING Last Admin: 02/26/18 16:11 Dose: 4 mg Oxycodone HCl (Roxicodone) 5 mg PO Q6H PRN PRN Reason: PAIN SCALE 3 TO 5 Oxycodone HCl (Roxicodone) 10 mg PO Q6H PRN PRN Reason: PAIN SCALE 6 TO 10 Oxycodone/Acetaminophen (Percocet 10/325 Mg) 1 tab PO Q4H PRN PRN Reason: Pain Less Than 5 On Scale Oxycodone/Acetaminophen (Percocet 10/325 Mg) 2 tab PO Q6H PRN PRN Reason: Pain Scale 5 To 10 Last Admin: 02/27/18 09:12 Dose: 2 tab Povidone Iodine (Betadine 5% Antisepsis Kit) 1 applicatio EACH NARE 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 WORKER [facility] Stop: 02/28/18 20:58 Senna/Docusate Sodium (Martha-Colace) 1 tab PO BID [facility] Last Admin: 02/27/18 09:08 Dose: Not Given Sennosides (Senokot) 17.2 mg PO BID PRN PRN Reason: Moderate Constipation Sodium Chloride (Ns Flush) 2 ml IV.FLUSH BID DANY Last Admin: 02/27/18 04:39 Dose: Not Given Sodium Chloride (Ns Flush) 2 ml IV.FLUSH PRN PRN PRN Reason: FLUSH AFTER USING IV ACCESS Temazepam (Restoril) 15 mg PO HS PRN PRN Reason: INSOMNIA Allergies Allergy/AdvReac Type Severity Reaction Status Date / Time doxycycline AdvReac Severe Vertigo Verified 02/25/18 16:03 meperidine AdvReac Severe Psychosis Verified 02/25/18 16:04 codeine AdvReac Mild Irritabilit Verified 02/25/18 16:04 y/Anxiety Home Medications Medication Instructions Recorded Confirmed Type cyclosporine [Restasis] 1 drp EACH EYE Q12H 02/25/18 02/25/18 History hyoscyamine sulfate [Levsin/SL] 0.125 mg SUBLINGUAL PRN 02/25/18 02/25/18 History metronidazole [Flagyl] 500 mg PO BID 02/25/18 02/25/18 History omeprazole 40 mg PO BID 02/25/18 02/25/18 History prednisolone acetate LEFT EYE BID 02/25/18 History ranitidine HCl [Zantac] 150 mg PO HS 02/25/18 02/25/18 History sucralfate [Carafate] 10 ml PO QID PRN 02/25/18 02/25/18 History Exam Vital signs: Vital Signs 02/26/18 16:00 02/26/18 18:37 02/26/18 19:00 Temperature 98.4 F 97.6 F Pulse Rate 81 88 73 Respiratory Rate 16 22 20 Blood Pressure 100/65 138/74 127/78 Pulse Oximetry 98 94 L 98 02/26/18 19:15 02/26/18 19:20 02/26/18 19:30 Temperature Pulse Rate 67 87 87 Respiratory Rate 12 8 L 12 Blood Pressure 121/69 118/71 115/56 L Pulse Oximetry 02/26/18 19:45 02/26/18 20:00 02/26/18 21:47 Temperature 98.5 F 97.8 F Pulse Rate 95 H 91 H Respiratory Rate 8 L 20 15 Blood Pressure 109/58 L 109/61 Pulse Oximetry 98 96 02/26/18 22:00 02/27/18 00:00 02/27/18 04:00 Temperature 97.3 F L 97.8 F Pulse Rate 94 H 77 Respiratory Rate 15 18 18 Blood Pressure 118/62 118/70 Pulse Oximetry 98 99 02/27/18 08:00 02/27/18 12:00 Temperature 98.1 F 99.5 F Pulse Rate 68 82 Respiratory Rate 18 16 Blood Pressure 111/71 95/51 L Pulse Oximetry 94 L 94 L Intake & Output 02/26/18 02/27/18 02/27/18 18:59 06:59 18:59 Intake Total 1500 / 1500 1700 / 1700 Output Total 50 / 50 600 / 600 Balance 1450 / 1450 1100 / 1100 Weight 74.9 kg Intake: IV 1000 / 1000 1200 / 1200 NS Inj 1,000 ML @ 100 mls/hr IV 1000 / 1000 .CONT .Q10H [facility]ANY Rx#:[id number] LR 1000 mL Inj 1,000 ML @ 30 1000 / 1000 mls/hr IV.SIG .Q24H DANY Rx#: [id number] Ancef Inj 1,000 MG In NS Inj 200 / 200 100 ML @ 200 mls/hr IV.SIG Q6H DANY Rx#:[id number] Anesthesia Amount 500 / 500 500 / 500 Output: Urine 600 / 600 Estimated Blood Loss 50 / 50 Other: # Voids 2 # Bowel Movements 2 - Constitutional mild distress - Routine HEENT Exam Head: Present: normocephalic, atraumatic ENT: Present: mucous membranes dry - Routine Neck Exam Present: supple - Routine Respiratory Exam Present: accessory muscle use (Even unlabored at rest) - Routine Cardiovascular Exam Present: RRR - Routine Abdominal Exam Present: soft (Round, no palpable liver borders, active bowel sounds no abdominal pain to light palpation) - Routine Extremities Exam Present: joint swelling (Post surgical left hip pain) - Routine Neurological Exam Present: alert (Answers questions appropriately, good historian) Results - Labs CBC & Chem 7: 02/27/18 07:30 02/27/18 07:30 Labs: Laboratory Results - last 24 hr 02/27/18 02/27/18 07:30 07:30 WBC 5.3 RBC 3.86 L Hgb 11.5 L Hct 34.2 L MCV 88.7 MCH 29.8 MCHC 33.6 RDW 14.4 Plt Count 236 MPV 7.8 Neut % (Auto) 73.1 H Lymph % (Auto) 14.3 [place] % (Auto) 11.4 H Eos % (Auto) 1.0 Baso % (Auto) 0.2 Neut # (Auto) 3.9 Lymph # (Auto) 0.8 L [place] # (Auto) 0.6 Eos # (Auto) 0.1 Baso # (Auto) 0.0 WBC Differential . Differential Comment Auto diff final Sodium 140 Potassium 4.2 Chloride 105 Carbon Dioxide 28.7 Anion Gap 6 BUN 13 Creatinine 0.67 Estimated GFR 89 Random Glucose 127 H Calcium 8.4 L Total Bilirubin 0.3 AST 763 H ALT 674 H Alkaline Phosphatase 293 H Total Protein 5.6 L Albumin 3.1 L - Imaging Impressions Hip X-Ray 02/26/18 00:00 CONCLUSION: Left-sided hip screw in place. Assessment and Plan - Plan 63-year-old female who was admitted to the hospital on 02/25/2018 status post left hip fracture. Patient received IM nailing on 02/26/2018 and currently recovering postop. Transaminitis elevated LFT levels 24 hours after surgical IM nailing left hip ; AST from 34-763 and ALT 46 08/31/1973. Current lipase 206, hemoglobin 11.5 and WBC count 5.3. Gastroenterology was consulted to assist in evaluating her acute transaminitis and GI plan of care. It is noted per the record and patient she has history of malabsorption syndrome, Keenan-Danlos and sees her outpatient PCP as well as hematology. Patient states that she has multiple malabsorption issues with her GI tract which includes chronic dyspepsia and some dysphasia issues. She is followed on an outpatient basis per Dr. Charlton and hematology and her PCP. Patient does note recent iron infusion, IV calcium infusions via a port. Patient also notes that she takes omeprazole 40 mg twice a day, Carafate, and Zantac at night. Patient does have history of polyps and notes recent EGD colonoscopy in the past year. Any family history of colon cancer. Patient has rare alcohol intake a couple of times per year, no tattoos and no recent transfusions no IV drug history. Currently liver ultrasound is pending. Uncontrolled significant transaminitis could be related to patient's surgery which was approximately 24 hours ago, shock liver, cardiovascular compromise, or medications. Patient did note receiving Toradol in the ER and states that she has also had problems in the past with Tylenol causing her enzymes to elevate. Currently patient denies any symptoms of abdominal pain no obvious bleeding, no diarrhea no constipation Malabsorption Syndrome, Keenan-Damlos, Well documented in record, in return causing GI malabsorption to her PO meds. Patient states PO pain meds, PPI etc. ineffective at low/normal dosing. Dr. Uriarte spoke with Nursing staff and patient . Consider transdermal Fentanyl patch during her post op acute phase. Plan Diet per attending Bowel regimen postop Liver workup labs initiated Protonix 40 mg twice a day Consider transdermal pain meds during acute post op phase. Carafate as needed Supportive care Monitor labs and especially LFT levels Further recommendations to follow Patient was seen per myself and Dr. Uriarte, note was written on his behalf
[2018-02-27] MEDS ORDERED: Sucralfate Liq 1 GM/10 ML UDC PO PRN (15:20)
[2018-02-27] MEDS: Enoxaparin Inj 40 MG/0.4 ML Syringe SQ SCH (18:29)
[2018-02-27 18:51] LABS: Hepatitis A IgM Antibody Nonreactive (Nonreactive); Hepatitits B Surface Antigen Nonreactive (Nonreactive)
--- NOTE | 2018-02-27 21:34 | US ---
EXAM DATE: 02/27/2018 9:29 PM EDT AGE/SEX: 63 years / Female INDICATIONS: Abdominal pain. CLINICAL DATA: This is the patient's initial encounter. Patient reports that signs and symptoms have been present for 1 day and indicates a pain score of 0/10. MEDICAL/SURGICAL HISTORY: Gastroesophageal reflux disease. Gastro paresis. Hyperparathyroidism. Hypocalcaemia. Osteoporosis. Sleep apnea. . Left amarjit colectomy. COMPARISON: [facility], CTA CHEST, 02/14/2018. . MEASUREMENTS: Liver:__ 19.2 cm. Common Bile Duct:__ 4mm. Right Kidney:__ 11.3 x 5.3 x 4.3 cm. FINDINGS: Liver: Increased echotexture without focal lesion or ductal dilation. Portal Vein: Hepatopedal flow seen in portal vein. Common Duct: No intraluminal mass or stone visualized. Gallbladder: Surgically absent. Pancreas: Not well visualized. Right Kidney: Normal echotexture and cortical thickness. No mass or hydronephrosis. Other: None. CONCLUSION: 1. Enlarged and fatty liver. 2. Otherwise within normal limits. Previous cholecystectomy. Electronically signed by: Charles Garsia MD 02/27/2018 9:33 PM EDT
[2018-02-27 21:50] LABS: Chol/HDL Ratio 2.09 Ratio
[2018-02-28] MEDS: HYDROmorphone PF Inj 2 MG/ML Vial IV.PUSH PRN ×5 (02:47→22:20)
[2018-02-28 05:09] LABS: Hematocrit 30.9 % (35.0-46.0); Hemoglobin 10.8 gm/dL (11.6-15.3)
[2018-02-28 05:30] LABS: Albumin 2.9 g/dL (3.4-5.0); Anion Gap 7 meq/L (5-15); Aspartate Aminotransferase 237 U/L (15-37); Blood Urea Nitrogen 15 mg/dL (7-18); Calcium 8.5 mg/dL (8.5-10.1); Chloride 103 meq/L (98-107); Glomerular Filtration Rate Greater Than 89 mL/min (>89); Glucose,Random 86 mg/dL (74-106); Potassium 3.6 meq/L (3.5-5.1); Sodium 141 meq/L (136-145)
[2018-02-28 05:35] LABS: Alanine Aminotransferase 390 U/L (10-53); Alkaline Phosphatase 232 U/L (45-117); Total Protein 5.6 g/dL (6.4-8.2)
--- NOTE | 2018-02-28 07:33 | P.PN ---
Physical Exam Vital signs: Vital Signs 02/27/18 08:00 02/27/18 12:00 02/27/18 16:00 Temperature 98.1 F 99.5 F 97.5 F L Pulse Rate 68 82 92 H Respiratory Rate 18 16 18 Blood Pressure 111/71 95/51 L 117/85 Pulse Oximetry 94 L 94 L 99 02/27/18 20:00 02/28/18 00:00 02/28/18 04:00 Temperature 98.6 F 98.7 F 98.6 F Pulse Rate 90 99 H 82 Respiratory Rate 17 17 17 Blood Pressure 116/68 102/75 99/57 L Pulse Oximetry 96 97 100 Intake & Output 02/27/18 02/28/18 02/28/18 18:59 06:59 18:59 Weight 74.9 kg Other: # Voids 4 Results - Labs CBC & Chem 7: 02/28/18 03:47 02/28/18 03:47 Laboratory Results - last 24 hr 02/27/18 02/27/18 02/27/18 07:30 07:30 07:30 WBC 5.3 RBC 3.86 L Hgb 11.5 L Hct 34.2 L MCV 88.7 MCH 29.8 MCHC 33.6 RDW 14.4 Plt Count 236 MPV 7.8 Neut % (Auto) 73.1 H Lymph % (Auto) 14.3 [place] % (Auto) 11.4 H Eos % (Auto) 1.0 Baso % (Auto) 0.2 Neut # (Auto) 3.9 Lymph # (Auto) 0.8 L [place] # (Auto) 0.6 Eos # (Auto) 0.1 Baso # (Auto) 0.0 WBC Differential . Differential Comment Auto diff final Sodium 140 Potassium 4.2 Chloride 105 Carbon Dioxide 28.7 Anion Gap 6 BUN 13 Creatinine 0.67 Estimated GFR 89 Random Glucose 127 H Calcium 8.4 L Ferritin Total Bilirubin 0.3 AST 763 H ALT 674 H Alkaline Phosphatase 293 H Total Protein 5.6 L Albumin 3.1 L Triglycerides 81 Cholesterol 107 L LDL Cholesterol, Calc 40 HDL Cholesterol 51.0 Cholesterol/HDL Ratio 2.09 Lipase 86 Tumor Marker AFP Hepatitis A IgM Ab Hep Bs Antigen Hep B Core IgM Ab Hep C IgG Ab 02/27/18 02/27/18 02/27/18 16:10 16:10 16:10 WBC RBC Hgb Hct MCV MCH MCHC RDW Plt Count MPV Neut % (Auto) Lymph % (Auto) [place] % (Auto) Eos % (Auto) Baso % (Auto) Neut # (Auto) Lymph # (Auto) [place] # (Auto) Eos # (Auto) Baso # (Auto) WBC Differential Differential Comment Sodium Potassium Chloride Carbon Dioxide Anion Gap BUN Creatinine Estimated GFR Random Glucose Calcium Ferritin 1017 H Total Bilirubin AST ALT Alkaline Phosphatase Total Protein Albumin Triglycerides Cholesterol LDL Cholesterol, Calc HDL Cholesterol Cholesterol/HDL Ratio Lipase Tumor Marker AFP 16.5 H Hepatitis A IgM Ab Nonreactive Hep Bs Antigen Nonreactive Hep B Core IgM Ab Nonreactive Hep C IgG Ab Nonreactive 02/28/18 02/28/18 03:47 03:47 WBC RBC Hgb 10.8 L Hct 30.9 L MCV MCH MCHC RDW Plt Count MPV Neut % (Auto) Lymph % (Auto) [place] % (Auto) Eos % (Auto) Baso % (Auto) Neut # (Auto) Lymph # (Auto) [place] # (Auto) Eos # (Auto) Baso # (Auto) WBC Differential Differential Comment Sodium 141 Potassium 3.6 Chloride 103 Carbon Dioxide 31.0 Anion Gap 7 BUN 15 Creatinine 0.63 Estimated GFR Greater than 89 Random Glucose 86 Calcium 8.5 Ferritin Total Bilirubin 0.3 AST 237 H ALT 390 H Alkaline Phosphatase 232 H Total Protein 5.6 L Albumin 2.9 L Triglycerides Cholesterol LDL Cholesterol, Calc HDL Cholesterol Cholesterol/HDL Ratio Lipase Tumor Marker AFP Hepatitis A IgM Ab Hep Bs Antigen Hep B Core IgM Ab Hep C IgG Ab - Imaging Impressions Hip CT 02/25/18 20:51 CONCLUSION: 1. No displaced fracture. Reportedly prior MRI revealed intertrochanteric fracture. Faint band of sclerosis seen in the lower femoral neck possibly related to subacute fracture or stress reaction. Mild osteoarthritis of the left hip. Liver Ultrasound 02/27/18 00:00 CONCLUSION: 1. Enlarged and fatty liver. 2. Otherwise within normal limits. Previous cholecystectomy. - Procedures - Preoperative Diagnosis (1) Hip fracture, left Comment: Left hip intertrochanteric fracture - Postoperative Diagnosis (1) Hip fracture, left Comment: Left hip intertrochanteric fracture Date of procedure: 02/26/18 Procedure: Left hip treatment of intertrochanteric fracture with intramedullary nail Anesthesia: GETA Surgeon: Jeferson López MD Animal Biologist: SANTIAGO Uriarte The surgical procedure was assisted by my Advanced Registered Nurse Practitioner. My STEWARDING SUPERVISOR presence was necessary throughout this case for the manipulation and positioning of the surgical extremity. My STEWARDING SUPERVISOR was assisting me throughout the duration of this procedure. The skill set of an Advance Registered Nurse Practitioner was medically necessary to complete this procedure. During the surgical case, the surgical aides teacher was working at the back table and the Advance Registered Nurse Practitioner was directly assisting me. Operation and Findings: Estimated blood loss: 75 cc Implants: Synthes short trochanteric nail, size: 12 x 130 The patient received intravenous vancomycin and Ancef. After the appropriate anesthesia was administered, and the patient was transferred to the fracture table. The fracture was visualized to be anatomic under fluoroscopic imaging. The hip was prepped and draped in usual sterile fashion. We made incision just proximal to the tip of the greater trochanter. We dissected down through the deep fascia. We used a threaded guidewire at the tip of the greater trochanter which was placed down to the metaphyseal region on both the AP and lateral views. We reamed proximally. Using fluoroscopic analysis we templated the appropriate size for the short nail. This nail was then placed into position under fluoroscopic guidance. We made incision laterally based on the position of the associated jig. We then placed a threaded guidewire into the center, center of the femoral head. The appropriate length for the helical blade was measured. We drilled laterally and then step reamed the femoral neck and femoral head region. The helical blade was placed into position. We then tightened the proximal set screw, which was followed by releasing one turn off of the screw to allow for compression. Traction was released from the leg. The nail was secured distally with a single screw off of the jig using fluoroscopic guidance. We took final fluoroscopic imaging which revealed that the fracture was in very good position. The hardware was in good position as well. The wounds were thoroughly irrigated and then closed with a 0 Vicryl followed by 2-0 Vicryl and markell. The postoperative plan is to start full weightbearing. Additionally, we will initiate postoperative antibiotics for 24 hours along with DVT prophylaxis consisting of early mobilization, SCDs, compression stockings, and Lovenox followed by aspirin. Documented By: Jeferson López MD 02/26/18 1802 Signed By: <Electronically signed by Jeferson López MD> 02/26/18 1810 Assessment and Plan - Assessment (1) Hip fracture, left Code(s): S72.002A - Fracture of unspecified part of neck of left femur, initial encounter for closed fracture Status: Acute (2) Intractable pain Code(s): R52 - Pain, unspecified Status: Acute (3) Malabsorption Code(s): K90.9 - Intestinal malabsorption, unspecified Status: Acute (4) Transaminitis Code(s): R74.0 - Nonspecific elevation of levels of transaminase and lactic acid dehydrogenase [LDH] Status: Acute - Plan 63-year-old female with a PMH of Keenan-Danlos, Malabsorption s/p Port Placement and Osteoporosis who presented to the ER w/ complaints of severe left hip pain found to have an occult left hip fracture. Left Hip Fx s/p mechanical fall approx 1wk ago 02/26 s/p IMN by Dr. López -Ortho following, WBAT LLE, Lovenox followed by ASA for DVT prophylaxis. Cleared for d/c from Ortho standpoint. -pain medication with bowel regimen Transaminitis - ?DILI patient given Toradol in ED, postop rxn, shock liver LFTs have elevated significantly AST 34 -> 763, ALT 46 -> 674 Lipase 206 02/26 -Obtain lipase level, lipid profile and Hepatitis profile -Liver US ordered -Consult GI, appreciate assistance. NPO for now. Continue IVF. -Avoid hepatotoxic agents -continue to trend LFTs Malabsorption: Chronic. Right chest port in place. Patient is requesting to be continued on high protein/high calorie diet -NPO for now -Consult business job titles once back on po diet Hypotensive, suspect 2/2 IV narcotics MAP 66 -Given IVF bolus. BP better this am 111/71, MAP 84 -fall precautions -hold parameters placed on IV pain medications DVT Prophylaxis: Anticoagulation post op per Ortho service Discharge Planning: Not ready for discharge. LFTs markedly elevated. GI evaluation pending.
[2018-02-28] MEDS: Multivitamin/Minerals Therapeutic Tablet PO SCH ×2 (08:01→22:13)
[2018-02-28] MEDS: Senna/Docusate Sodium 8.6/50 MG Tablet PO SCH ×3 (08:02→22:20)
--- NOTE | 2018-02-28 13:43 | P.PNOP ---
Subjective Interval history: The patient is out of bed in chair with family at bedside. The patient reports ongoing pain to the left hip. The patient is requesting a fentanyl patch due to her malabsorption issues and her inability to take Tylenol due to recent studies showing elevated liver enzymes. The patient does state her pain is slightly improved from yesterday. Physical Exam Vital signs: Vital Signs 02/27/18 16:00 02/27/18 20:00 02/28/18 00:00 Temperature 97.5 F L 98.6 F 98.7 F Pulse Rate 92 H 90 99 H Respiratory Rate 18 17 17 Blood Pressure 117/85 116/68 102/75 Pulse Oximetry 99 96 97 02/28/18 04:00 02/28/18 08:00 02/28/18 09:54 Temperature 98.6 F 97.4 F L Pulse Rate 82 73 108 H Respiratory Rate 17 18 Blood Pressure 99/57 L 102/55 L Pulse Oximetry 100 73 L 02/28/18 12:00 Temperature 98.1 F Pulse Rate 87 Respiratory Rate 17 Blood Pressure 111/61 Pulse Oximetry 97 Intake & Output 02/27/18 02/28/18 02/28/18 18:59 06:59 18:59 Weight 74.9 kg Other: # Voids 4 Narrative: The patient's dressings are clean, dry, and intact. EHL/TA/G are intact. 2+ pedal pulse. The patient's calf is soft and nontender. Sensation is intact to light touch distally. Minimal swelling. Results - Labs CBC & Chem 7: 02/28/18 03:47 02/28/18 03:47 Laboratory Results - last 24 hr 02/27/18 02/27/18 02/27/18 07:30 16:10 16:10 Hgb Hct Sodium Potassium Chloride Carbon Dioxide Anion Gap BUN Creatinine Estimated GFR Random Glucose Calcium Ferritin Total Bilirubin AST ALT Alkaline Phosphatase Total Protein Albumin Triglycerides 81 Cholesterol 107 L LDL Cholesterol, Calc 40 HDL Cholesterol 51.0 Cholesterol/HDL Ratio 2.09 Lipase 86 Tumor Marker AFP 16.5 H Hepatitis A IgM Ab Nonreactive Hep Bs Antigen Nonreactive Hep B Core IgM Ab Nonreactive Hep C IgG Ab Nonreactive 02/27/18 02/28/18 02/28/18 16:10 03:47 03:47 Hgb 10.8 L Hct 30.9 L Sodium 141 Potassium 3.6 Chloride 103 Carbon Dioxide 31.0 Anion Gap 7 BUN 15 Creatinine 0.63 Estimated GFR Greater than 89 Random Glucose 86 Calcium 8.5 Ferritin 1017 H Total Bilirubin 0.3 AST 237 H ALT 390 H Alkaline Phosphatase 232 H Total Protein 5.6 L Albumin 2.9 L Triglycerides Cholesterol LDL Cholesterol, Calc HDL Cholesterol Cholesterol/HDL Ratio Lipase Tumor Marker AFP Hepatitis A IgM Ab Hep Bs Antigen Hep B Core IgM Ab Hep C IgG Ab - Imaging Impressions Hip CT 02/25/18 20:51 CONCLUSION: 1. No displaced fracture. Reportedly prior MRI revealed intertrochanteric fracture. Faint band of sclerosis seen in the lower femoral neck possibly related to subacute fracture or stress reaction. Mild osteoarthritis of the left hip. Liver Ultrasound 02/27/18 00:00 CONCLUSION: 1. Enlarged and fatty liver. 2. Otherwise within normal limits. Previous cholecystectomy. - Procedures - Preoperative Diagnosis (1) Hip fracture, left Comment: Left hip intertrochanteric fracture - Postoperative Diagnosis (1) Hip fracture, left Comment: Left hip intertrochanteric fracture Date of procedure: 02/26/18 Procedure: Left hip treatment of intertrochanteric fracture with intramedullary nail Anesthesia: MIKAEL Surgeon: Jeferson López MD Traffic Recorder: SANTIAGO Uriarte The surgical procedure was assisted by my Advanced Registered Nurse Practitioner. My SUSTAINABLE PRODUCTS MARKETING MANAGER presence was necessary throughout this case for the manipulation and positioning of the surgical extremity. My SUSTAINABLE PRODUCTS MARKETING MANAGER was assisting me throughout the duration of this procedure. The skill set of an Advance Registered Nurse Practitioner was medically necessary to complete this procedure. During the surgical case, the surgical dental assistant was working at the back table and the Advance Registered Nurse Practitioner was directly assisting me. Operation and Findings: Estimated blood loss: 75 cc Implants: Synthes short trochanteric nail, size: 12 x 130 The patient received intravenous vancomycin and Ancef. After the appropriate anesthesia was administered, and the patient was transferred to the fracture table. The fracture was visualized to be anatomic under fluoroscopic imaging. The hip was prepped and draped in usual sterile fashion. We made incision just proximal to the tip of the greater trochanter. We dissected down through the deep fascia. We used a threaded guidewire at the tip of the greater trochanter which was placed down to the metaphyseal region on both the AP and lateral views. We reamed proximally. Using fluoroscopic analysis we templated the appropriate size for the short nail. This nail was then placed into position under fluoroscopic guidance. We made incision laterally based on the position of the associated jig. We then placed a threaded guidewire into the center, center of the femoral head. The appropriate length for the helical blade was measured. We drilled laterally and then step reamed the femoral neck and femoral head region. The helical blade was placed into position. We then tightened the proximal set screw, which was followed by releasing one turn off of the screw to allow for compression. Traction was released from the leg. The nail was secured distally with a single screw off of the jig using fluoroscopic guidance. We took final fluoroscopic imaging which revealed that the fracture was in very good position. The hardware was in good position as well. The wounds were thoroughly irrigated and then closed with a 0 Vicryl followed by 2-0 Vicryl and markell. The postoperative plan is to start full weightbearing. Additionally, we will initiate postoperative antibiotics for 24 hours along with DVT prophylaxis consisting of early mobilization, SCDs, compression stockings, and Lovenox followed by aspirin. Documented By: Jeferson López MD 02/26/18 1806 Signed By: <Electronically signed by Jeferson López MD> 02/26/18 1810 Assessment and Plan - Assessment and Plan POD #2: Left IMN for left hip intertrochanteric fracture Elevated LFTs with malabsorption syndrome. 1. WBAT LLE 2. Lovenox followed by ASA for DVT prophylaxis 3. Ice to the left hip PRN 4. Stable per ortho for discharge home today with home health if medically stable. 5. F/U in the office in 1-[address] López or SANTIAGO Bradshaw 6. The patient is requesting fentanyl patches due to her malabsorption problem. The nurse was informed to contact medical to see if this could be arranged.
--- NOTE | 2018-02-28 15:00 | P.PN ---
Physical Exam Vital signs: Vital Signs 02/27/18 16:00 02/27/18 20:00 02/28/18 00:00 Temperature 97.5 F L 98.6 F 98.7 F Pulse Rate 92 H 90 99 H Respiratory Rate 18 17 17 Blood Pressure 117/85 116/68 102/75 Pulse Oximetry 99 96 97 02/28/18 04:00 02/28/18 08:00 02/28/18 09:54 Temperature 98.6 F 97.4 F L Pulse Rate 82 73 108 H Respiratory Rate 17 18 Blood Pressure 99/57 L 102/55 L Pulse Oximetry 100 73 L 02/28/18 12:00 Temperature 98.1 F Pulse Rate 87 Respiratory Rate 17 Blood Pressure 111/61 Pulse Oximetry 97 Intake & Output 02/27/18 02/28/18 02/28/18 18:59 06:59 18:59 Weight 74.9 kg Other: # Voids 4 Narrative: Subjective Interval history: Follow up on patient with left hip fracture, s/p IM nail. Pain is currently controlled by meds, will taper down dilaudid. Continue Fentanyl patch. Discussed with the patient, nurse, family at bedside, Dr Jalen STILL and pharmacy regarding options for the patient regarding pain management. Patient with malabsorption. Dr Jalen STILL discussed with Dr Patton at pain management clinic and Dr Patton agrees to see the patient tomorrow in consult in his office for pain management Also patient to have percocet prescribed by ortho at [place]. The patient feels improving today, pain is better controlled. Dilaudid tapered. Physical Exam GENERAL: Pleasant middle aged female in NAD. Awake and alert. In the chair. CARDIOVASCULAR: Regular rate and rhythm with no murmurs, rubs or gallops. RESPIRATORY: No accessory muscle use. Clear to auscultation anteriorly. Breath sounds equal bilaterally. GASTROINTESTINAL: Abdomen soft, non-tender, nondistended. Hypoactive BS. MUSCULOSKELETAL: No obvious deformities. No edema in BLE. s/p Left hip IMN, postop dressings C/D/I. Motor/ sensory function intact distally. NEUROLOGICAL: Awake and alert. No obvious cranial nerve deficits. Able to move all extremities spontaneously. Nonfocal. Normal speech. PSYCHIATRIC: Appropriate mood and affect; insight and judgment normal. Patient is anxious regarding her discharge pain meds 63-year-old female with a PMH of Keenan-Danlos, Malabsorption s/p Port Placement and Osteoporosis who presented to the ER w/ complaints of severe left hip pain found to have an occult left hip fracture. Left Hip Fx s/p mechanical fall approx 1wk ago 02/26 s/p IMN by Dr. López -Ortho following, WBAT LLE, Lovenox followed by ASA for DVT prophylaxis. Cleared for d/c from Ortho standpoint. -pain medication with bowel regimen Transaminitis - ?DILI patient given Toradol in ED, postop rxn, shock liver LFTs have elevated significantly AST 34 -> 763, ALT 46 -> 674 Lipase 206 02/26 -Obtain lipase level, lipid profile and Hepatitis profile -Liver US ordered -Consult GI, appreciate assistance. Continue IVF. -Avoid hepatotoxic agents -continue to trend LFTs Malabsorption: Chronic. Right chest port in place. Patient is requesting to be continued on high protein/high calorie diet -NPO for now -Consult automatic mounter once back on po diet Hypotensive, suspect 2/2 IV narcotics MAP 66 -Given IVF bolus. BP better this am 111/71, MAP 84 -fall precautions -hold parameters placed on IV pain medications DVT Prophylaxis: Anticoagulation post op per Ortho service Code Status: FULL Discussed Condition With: patient, nurse, Dr Rao GI, pharmacy. Also Dr Patton pain management agreed to see the patient tomorrow as walk in for pain management. Discharge Planning: Not ready for discharge as patient with severe pain. Will taper down dilaudid. Patient to walk in to Dr Rodrigez clinic at [place] tomorrow and dipika have fentanyl patch ordered by him . LFTs markedly elevated yesterday. Improved significantly. Continue to monitor. Results - Labs CBC & Chem 7: 02/28/18 03:47 02/28/18 03:47 Laboratory Results - last 24 hr 02/27/18 02/27/18 02/27/18 07:30 16:10 16:10 Hgb Hct Sodium Potassium Chloride Carbon Dioxide Anion Gap BUN Creatinine Estimated GFR Random Glucose Calcium Ferritin Total Bilirubin AST ALT Alkaline Phosphatase Total Protein Albumin Triglycerides 81 Cholesterol 107 L LDL Cholesterol, Calc 40 HDL Cholesterol 51.0 Cholesterol/HDL Ratio 2.09 Lipase 86 Tumor Marker AFP 16.5 H Hepatitis A IgM Ab Nonreactive Hep Bs Antigen Nonreactive Hep B Core IgM Ab Nonreactive Hep C IgG Ab Nonreactive 02/27/18 02/28/18 02/28/18 16:10 03:47 03:47 Hgb 10.8 L Hct 30.9 L Sodium 141 Potassium 3.6 Chloride 103 Carbon Dioxide 31.0 Anion Gap 7 BUN 15 Creatinine 0.63 Estimated GFR Greater than 89 Random Glucose 86 Calcium 8.5 Ferritin 1017 H Total Bilirubin 0.3 AST 237 H ALT 390 H Alkaline Phosphatase 232 H Total Protein 5.6 L Albumin 2.9 L Triglycerides Cholesterol LDL Cholesterol, Calc HDL Cholesterol Cholesterol/HDL Ratio Lipase Tumor Marker AFP Hepatitis A IgM Ab Hep Bs Antigen Hep B Core IgM Ab Hep C IgG Ab - Imaging Impressions Hip CT 02/25/18 20:51 CONCLUSION: 1. No displaced fracture. Reportedly prior MRI revealed intertrochanteric fracture. Faint band of sclerosis seen in the lower femoral neck possibly related to subacute fracture or stress reaction. Mild osteoarthritis of the left hip. Liver Ultrasound 02/27/18 00:00 CONCLUSION: 1. Enlarged and fatty liver. 2. Otherwise within normal limits. Previous cholecystectomy. Assessment and Plan - Assessment (1) Hip fracture, left Code(s): S72.002A - Fracture of unspecified part of neck of left femur, initial encounter for closed fracture Status: Acute (2) Intractable pain Code(s): R52 - Pain, unspecified Status: Acute (3) Malabsorption Code(s): K90.9 - Intestinal malabsorption, unspecified Status: Acute (4) Transaminitis Code(s): R74.0 - Nonspecific elevation of levels of transaminase and lactic acid dehydrogenase [LDH] Status: Acute
--- NOTE | 2018-02-28 17:21 | P.DS ---
Date of admission: 02/25/18 19:15 Primary care physician: Charles Dyer DO Brief History from admission: This is a 63-year-old female with a PMH of Keenan-Danlos, Malabsorption s/p Port Placement and Osteoporosis who presented to the ER w/ complaints of severe left hip pain. Pain is 10/10, constant, worse w/ movement, no alleviating factors. States symptoms started approx 1wk ago when she had a mechanical trip and fall on the sidewalk. No head trauma or LOC reported. Was seen at Urgent Care at that time, had X-rays and was told they were negative for fracture. Has been having ongoing pain and increasing difficulty w/ ambulation since. Seen by PCP few days ago and referred for MRI, states results would be called in to PCP today however pt unable to wait due to pain. Brought copy of discs from [facility] w/ report, showing subacute left hip fracture. Ortho consulted. BP 110/73, HR 85, O2 sat 96% on RA, Afebrile. CBC unremarkable. Chemistry unremarkable. INR 0.9. DS: Diagnosis - Discharge Diagnosis (1) Hip fracture, left Status: Acute (2) Intractable pain Status: Acute (3) Malabsorption Status: Acute (4) Transaminitis Status: Acute DS: Medications - Discharge Medications Prescriptions: aspirin 325 mg PO DAILY 30 Days #30 tab enoxaparin [Lovenox] 40 mg SUB-Q DAILY 10 Days #10 units oxycodone-acetaminophen [Percocet] 1 - 2 tab PO Q4H PRN #50 tab PRN Reason: Pain DS: Summary Hospital Course: GENERAL: Pleasant middle aged female in NAD. Awake and alert. In the chair. CARDIOVASCULAR: Regular rate and rhythm with no murmurs, rubs or gallops. RESPIRATORY: No accessory muscle use. Clear to auscultation anteriorly. Breath sounds equal bilaterally. GASTROINTESTINAL: Abdomen soft, non-tender, nondistended. Hypoactive BS. MUSCULOSKELETAL: No obvious deformities. No edema in BLE. s/p Left hip IMN, postop dressings C/D/I. Motor/ sensory function intact distally. NEUROLOGICAL: Awake and alert. No obvious cranial nerve deficits. Able to move all extremities spontaneously. Nonfocal. Normal speech. PSYCHIATRIC: Appropriate mood and affect; insight and judgment normal. Patient is anxious regarding her discharge pain meds 63-year-old female with a PMH of Keenan-Danlos, Malabsorption s/p Port Placement and Osteoporosis who presented to the ER w/ complaints of severe left hip pain found to have an occult left hip fracture. Left Hip Fx s/p mechanical fall approx 1wk ago 02/26 s/p IMN by Dr. López -Ortho following, WBAT LLE, Lovenox followed by [facility]SA for DVT prophylaxis. Cleared for d/c from Ortho standpoint. -pain medication with bowel regimen Transaminitis - ?DILI patient given Toradol in ED, postop rxn, shock liver LFTs have elevated significantly AST 34 -> 763, ALT 46 -> 674 Lipase 206 02/26 -Obtain lipase level, lipid profile and Hepatitis profile -Liver US ordered -Consult GI, appreciate assistance. Continue IVF. -Avoid hepatotoxic agents -continue to trend LFTs Malabsorption: Chronic. Right chest port in place. 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 BP better this am 111/71, MAP 84 -fall precautions -hold parameters placed on IV pain medications DVT Prophylaxis: Anticoagulation post op per Ortho service Code Status: FULL Discussed Condition With: patient, nurse, Dr Jalen STILL, pharmacy. Also Dr Patton pain management agreed to see the patient tomorrow as walk in for pain management. Discharge Planning: Not ready for discharge as patient with severe pain. Dilaudid tapered . Patient to walk in to Dr Barclay [facility] has appointment in the afternoon and will have fentanyl patch ordered by him and / or other patient with pain management. LFTs markedly elevated after surgery. LFT trending down and improved significantly. The patient is [facility] in stable condition - Time Spent with Patient Total time spent providing and/or coordinating discharge services: Greater than 30 minutes - Quality: VTE Deep Vein Thrombosis/Pulmonary Embolism Present on Admission: No Exam Vital signs: Vital Signs 02/27/18 20:00 02/28/18 00:00 02/28/18 04:00 Temperature 98.6 F 98.7 F 98.6 F Pulse Rate 90 99 H 82 Respiratory Rate 17 17 17 Blood Pressure 116/68 102/75 99/57 L Pulse Oximetry 96 97 100 02/28/18 08:00 02/28/18 09:54 02/28/18 12:00 Temperature 97.4 F L 98.1 F Pulse Rate 73 108 H 87 Respiratory Rate 18 17 Blood Pressure 102/55 L 111/61 Pulse Oximetry 73 L 97 02/28/18 15:48 Temperature 98.4 F Pulse Rate 95 H Respiratory Rate 17 Blood Pressure 97/66 L Pulse Oximetry 96 Intake & Output 02/27/18 02/28/18 02/28/18 18:59 06:59 18:59 Weight 74.9 kg Other: # Voids 4 Results Procedures completed during hospitalization: 02/26 s/p IMN by Dr. López Labs on day of discharge: Labs from last 24 hours 02/28/18 02/28/18 02/27/18 03:47 03:47 16:10 Hgb 10.8 L Hct 30.9 L Sodium 141 Potassium 3.6 Chloride 103 Carbon Dioxide 31.0 Anion Gap 7 BUN 15 Creatinine 0.63 Estimated GFR Greater than 89 Random Glucose 86 Calcium 8.5 Total Bilirubin 0.3 AST 237 H ALT 390 H Alkaline Phosphatase 232 H Total Protein 5.6 L Albumin 2.9 L Triglycerides Cholesterol LDL Cholesterol, Calc HDL Cholesterol Cholesterol/HDL Ratio Lipase Hepatitis A IgM Ab Nonreactive Hep Bs Antigen Nonreactive Hep B Core IgM Ab Nonreactive Hep C IgG Ab Nonreactive 02/27/18 07:30 Hgb Hct Sodium Potassium Chloride Carbon Dioxide Anion Gap BUN Creatinine Estimated GFR Random Glucose Calcium Total Bilirubin AST ALT Alkaline Phosphatase Total Protein Albumin Triglycerides 81 Cholesterol 107 L LDL Cholesterol, Calc 40 HDL Cholesterol 51.0 Cholesterol/HDL Ratio 2.09 Lipase 86 Hepatitis A IgM Ab Hep Bs Antigen Hep B Core IgM Ab Hep C IgG Ab - Impressions ITS Impressions Hip CT 02/25/18 20:51 CONCLUSION: 1. No displaced fracture. Reportedly prior MRI revealed intertrochanteric fracture. Faint band of sclerosis seen in the lower femoral neck possibly related to subacute fracture or stress reaction. Mild osteoarthritis of the left hip. Hip X-Ray 02/26/18 00:00 CONCLUSION: Left-sided hip screw in place. Liver Ultrasound 02/27/18 00:00 CONCLUSION: 1. Enlarged and fatty liver. 2. Otherwise within normal limits. Previous cholecystectomy. Discharge Plan - Discharge Disposition Patient Disposition: /Home Health Service - Discharge Condition Condition: Stable - Discharge Order Discharge Orders: Discharge Order (Routine); Ordered 03/01/18 Ordered By: Trice Ravi - Discharge Details Anticipated Discharge Date: 02/28/18 - Physicians Team Primary Care Provider: Charles Dyer Attending Provider: Trice Ravi Other Providers: Jeferson López MD
--- NOTE | 2018-02-28 17:41 | MB ---
cc: Parth Rao MD,Charles Barnes,Haseeb López,Jeferson Rao,Parth TELLEZ DATE: 02/28/2018 DATE OF : 1955 DATE OF CONSULTATION: 02/28/2018 LABORER LANDSCAPE: Dr. Parth Rao. HISTORY OF PRESENT ILLNESS: The patient is a 63-year-old white female was asked to see her for further evaluation and management of elevated liver enzymes. She was admitted 2 days ago with a hip fracture that was documented, though she may have sustained it a week or 10 days earlier, she had surgery that same day. Subsequently, liver enzymes were found to be elevated. 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 She has osteoporosis. She has gastroparesis, gastroesophageal reflux disease, hyperparathyroidism, hypocalcemia, presbyesophagus, osteoporosis, sleep apnea with use of CPAP at night. PAST SURGICAL HISTORY: Again, the duodenal switch for weight loss. She has a history of a hemicolectomy. MEDICATIONS: Here in the hospital include: 1. Aluminum hydroxide with magnesium hydroxide and Simethicone. 2. Bisacodyl. 3. Benadryl. 4. Lovenox injections. 5. Duragesic patch 25 mcg every 72 hours. 6. Dilaudid pain medication IV. 7 . Lopressor 25 mg p.r.n. 8. Zofran p.r.n. 9. Roxicodone p.r.n. 10. Oxycodone p.r.n. 11. Senokot. 12. Sucralfate. 13. Restoril. ALLERGIES: DOXYCYCLINE, MEPERIDINE, CODEINE. SOCIAL HISTORY: No tobacco or alcohol use. FAMILY HISTORY: Unremarkable for any liver disease. REVIEW OF SYSTEMS: No history of seizures or strokes. No headaches. No vision difficulties. No dysphagia or odynophagia, reflux has been controlled. No rashes. No joint pains, just this new pain post left hip surgery. No unexplained weight loss. No urinary symptomatology. No history of pancreatic disease or diabetes or hypertension. She tells me she has had some recent fluctuations in blood pressure and pulse with blood pressure as high as the 180s systolic and down into the 90s systolic. Pulse has jumped into the 90s for no obvious reason, though she usually runs in the 50s. She has not noticed any flushing, though has had diffuse hot flashes. Stools are not normal in consistency because of her malabsorption process. PHYSICAL EXAMINATION: VITAL SIGNS: Her weight is 74.9 kg. Temperature is 98.4, pulse 95, respiratory rate 17, blood pressure 97/66. GENERAL: She is alert. She is oriented x3. HEENT: Anicteric. Extraocular motions are intact. I appreciate no submandibular, cervical, supraclavicular, axillary or epitrochlear adenopathy. LUNGS: Clear to auscultation. HEART: Regular rate and rhythm with no murmur or gallop. ABDOMEN: Good bowel sounds with no appreciable bruit. The abdomen is soft. There is no tenderness. No masses or hepatosplenomegaly are appreciated. EXTREMITIES: No pedal edema, Dupuytren's contractures, palmar erythema or spider angiomata are noted. LABORATORY STUDIES: On admission, 02/25/2018, the white count was 5.6, hemoglobin 13.0, platelets 268. Yesterday, white count 5.3, hemoglobin 11.5, platelets 236. INR was 0.9 on 02/25/2018. On 02/27/2018, sodium was 140, potassium 4.2, BUN and creatinine normal. AST 763, ALT 674, alkaline phosphatase 293, normal bilirubin. Today, normal creatinine. AST 237, ALT 390, alkaline phosphatase 232, bilirubin unchanged at 0.3. IMAGING STUDIES: Ultrasound reveals hepatomegaly and mild splenomegaly with increased echotexture of the liver. She does not recall ever having undergone prior imaging of the abdomen to have a comparative study. IMPRESSION: 1. Elevated liver enzymes: the pattern is suggestive of medication-related injury, possibly one of the anesthetics or other medications that she has received. Liver enzymes have improved between 02/27/2018 and 02/28/2018. I expect the trend to continue. We will follow the labs. If down the road, liver enzymes have not completely corrected or repeat ultrasound shows persistence of hepatosplenomegaly, liver biopsy should be considered. We discussed the procedure. 2. Pain control: Given her malabsorption condition, she is unable to absorb multiple products including calcium, fats (if she eats a stick of butter, she will absorb 1 tablespoon of it, she tells me). She has not been able to tolerate oral narcotic pain medications as they have not worked for her. She has tried intravenous morphine in the past with no significant benefit. We discussed the option of sublingual morphine here in the hospital, but she does not think it will help her as the IV formulation had not helped. She is on a low dose Duragesic patch at this point and is still receiving Dilaudid. We are trying to figure out what pain medication we can use upon discharge, given the new government regulations with narcotics. I have spoken with the Pharmacy and with Dr. Ravi. We are still trying to coordinate a plan for her for pain control. 3. Finally, when she follows up with Dr. Dyer, he may consider evaluation for pheochromocytoma, given her fluctuating blood pressure and pulse. MD MYA Mcgovern/DUDLEY , 04:42 PM , 04:57 PM
[2018-02-28] MEDS: Enoxaparin Inj 40 MG/0.4 ML Syringe SQ SCH (18:33)
[2018-02-28] MEDS ORDERED: Potassium Bicarbonate 25 MEQ Effervescent Tablet PO SCH (20:00)
[2018-02-28] MEDS ORDERED: Heparin Central Flush 100 UNIT/ML 5 ML Vial IV.FLUSH PRN ×2 (20:05)
[2018-03-01] MEDS: HYDROmorphone PF Inj 2 MG/ML Vial IV.PUSH PRN ×2 (03:49→09:01)
[2018-03-01 05:12] LABS: Albumin 2.9 g/dL (3.4-5.0)
[2018-03-01 05:13] LABS: Total Protein 5.8 g/dL (6.4-8.2)
--- NOTE | 2018-03-01 08:25 | P.PNGI ---
Subjective Interval history: Her hip is mildly more uncomfortable. No other complaints. Physical Exam Vital signs: Vital Signs 02/28/18 09:54 02/28/18 12:00 02/28/18 15:48 Temperature 98.1 F 98.4 F Pulse Rate 108 H 87 95 H Respiratory Rate 17 17 Blood Pressure 111/61 97/66 L Pulse Oximetry 97 96 02/28/18 20:00 02/28/18 20:47 03/01/18 00:22 Temperature 98.4 F 98.7 F Pulse Rate 116 H 91 H 82 Respiratory Rate 18 18 Blood Pressure 105/64 113/63 Pulse Oximetry 98 98 03/01/18 03:50 03/01/18 04:00 Temperature 98.9 F Pulse Rate 81 85 Respiratory Rate 18 Blood Pressure 97/53 L Pulse Oximetry 97 Intake & Output 02/28/18 03/01/18 03/01/18 18:59 06:59 18:59 Intake Total 960 / 960 480 / 480 Balance 960 / 960 480 / 480 Weight 74.9 kg Intake: Oral 960 / 960 480 / 480 Other: # Voids 3 7 # Bowel Movements 0 - Constitutional no acute distress - Routine HEENT Exam Eye: Present: EOMI - Routine Psychiatric Exam Present: normal affect Results - Labs CBC & Chem 7: 02/28/18 03:47 02/28/18 03:47 Laboratory Results - last 24 hr 03/01/18 03:45 Total Bilirubin 0.4 Direct Bilirubin 0.1 Indirect Bilirubin 0.3 AST 88 H ALT 258 H Alkaline Phosphatase 196 H Total Protein 5.8 L Albumin 2.9 L Assessment and Plan (1) Elevated liver enzymes Status: Acute Code(s): R74.8 - Abnormal levels of other serum enzymes - Plan There is continued improvement of the liver enzymes. Again, I suspect a medication-induced process. These should continue to improve over the next few weeks. If not, and if the hepatosplenomegaly persist, outpatient liver biopsy can be coordinated. She'll follow up with Dr. Charlton. I spoke with Dr. Patton last evening (after speaking with the pharmacist twice) about this patient's malabsorption of oral pain medications. He'll see her today after discharge and help with pain control.
[2018-03-01] MEDS: Senna/Docusate Sodium 8.6/50 MG Tablet PO SCH (09:02)
[2018-03-01] MEDS: Multivitamin/Minerals Therapeutic Tablet PO SCH (09:02)
[2018-03-01] MEDS ORDERED: HYDROmorphone PF Inj 2 MG/ML Vial IV.PUSH PRN (09:08)
--- NOTE | 2018-03-01 10:50 | P.DCO ---
- Physical Therapy Order: Evaluate and treat - Home Health Nursing Order: Medical education, Signs/symptoms of disease process, Medication education-adverse effect, Nursing assessment with vital signs - Certification I have seen patient Lindsay Castillo on 03/01/18. My clinical findings support the need for the requested home health care services because: Limited mobility due to disease progression I certify that my clinical findings support that this patient is homebound because: Post-op weakness
[2018-03-01 13:33] LABS: Smooth Muscle Total Auto Abs Negative (Negative)
[2018-03-02 03:51] LABS: DS DNA Ab (Crithidia) NEGATIVE (NEGATIVE)
[2018-03-04 11:52] LABS: Ceruloplasmin 29 mg/dL (18-53)
== END 2018-03-01 11:46 | disposition home health service (06) ==
LOC: NEPD 13:52 → NEDA 19:15 → N06 20:13
PROVIDERS: ADMIT Hospitalist; ATTEND Hospitalist
PROC: ORIFHIP (2018-02-26 17:01)